=== PATIENT | female | born 1935 | race Caucasian/White ===

== ENCOUNTER 2017-11-07 14:25 | Inpatient (IN) ==
--- NOTE | 2017-11-07 15:16 | XRay Report ---
Indication: PAIN PROCEDURE: XR knee RT 3V: Encounter: Initial Comparison: March 11, 2014 Findings: There is a comminuted distracted fracture of the superior pole of the patella. This is distracted by approximately 3 cm proximally. This is a periprosthetic fracture involving the patellar resurfacing component of the total knee replacement. Associated joint effusion. The tibial and femoral components of the knee replacement appear intact. No additional acute fracture. No dislocation. Impression: Distracted patellar fracture. .
--- NOTE | 2017-11-07 15:25 | Emergency Department Report ---
Lower Extremity Injury HPI - General Chief Complaint: Extremity Injury, Lower Stated Complaint: pain r knee Time Seen by Provider: 11/07/17 15:25 - Related Data Home Medications Medication Instructions Recorded Confirmed Amitriptyline HCl 150 mg PO PM #0 03/19/10 Montelukast Sodium [Singulair] 10 mg PO PM #0 03/19/10 Pregabalin Cap [Lyrica] 50 mg PO TID #0 03/19/10 Triamcinolone Acetonide (Nasacort 1 spray EA NOSTRIL BID #0 03/19/10 Aq) Folic Acid 3 mg PO DAILY #0 10/01/10 Potassium Chloride [Klor-Con M20] 20 meq PO BID #0 10/01/10 Furosemide [Lasix] 80 mg PO BID #0 05/02/12 Gabapentin 100 mg PO TID #0 05/02/12 Levothyroxine Sodium 25 mcg PO DAILY #0 05/02/12 Zolpidem Tartrate [Ambien] 5 mg PO HS #0 09/22/13 Albuterol Sulfate [Proventil Hfa 2 puff IH Q4HR PRN #0 10/18/13 90mcg] Ferrous Sulfate 250 mg PO DAILY #0 10/18/13 Fluticasone/Salmeterol 250/50 1 puff INH BID #0 10/18/13 [Advair 250-50 Diskus] Cetirizine HCl [Zyrtec] 10 mg PO DAILY #0 02/27/14 Benazepril HCl 15 mg PO DAILY #0 03/07/14 Magnesium Hydroxide [Milk of 30 ml PO DAILY PRN #0 05/10/14 Magnesia] Morphine Sulfate (Avinza) 30 mg PO DAILY #0 05/10/14 Rabeprazole Sodium 20 mg PO DAILY #0 05/10/14 Sodium Chloride [Deep Sea] 2 spray EA NOSTRIL DAILY #0 05/10/14 Allopurinol 100 mg PO DAILY #0 01/22/16 Ascorbic Acid (Vitamin C) PO DAILY #0 01/22/16 Calcium Polycarbophil [Fiber Tabs] 625 mg PO DAILY #0 01/22/16 Cyanocobalamin (Vitamin B-12) 1 tab PO BID #0 01/22/16 [Vitamin B-12] Glucosamine/Chondroitin Sulf A 1 cap PO BID #0 01/22/16 [Glucosamine Chondroitin Cap] Hydrocodone/Acetaminophen 1 tab PO Q4HR PRN #0 01/22/16 [Hydrocodon-Acetaminophn 10-325] Lutein 20 mg PO PM #0 01/22/16 Multivitamin [Multi-Day Vitamins] 1 tab PO PM #0 01/22/16 [place]-3 Fatty Acids [Fish Oil] 1 cap PO PM #0 01/22/16 dilTIAZem HCl [Cartia Xt] 180 mg PO DAILY #0 01/22/16 Calcium Carbonate/Vitamin D3 PO DAILY #0 01/27/16 [Calcium 600-Vit D3 200 Tablet] Previous Rx's Medication Instructions Recorded predniSONE [Prednisone] 10 mg PO WB 2 Days #0 tab 01/28/16 Allergies Allergy/AdvReac Type Severity Reaction Status Date / Time adhesive tape Allergy Unknown RASH Verified 01/27/16 09:15 petrolatum,white Allergy Unknown Unverified 01/27/16 09:15 sulfamethoxazole Allergy Unknown Unverified 01/27/16 09:15 trimethoprim Allergy Unknown Unverified 01/27/16 09:15 Unclassified Drug Allergy Severe [place] Uncoded 01/27/16 09:15 = ITCH/THROAT SWELLS duloxetine HCl AdvReac Mild WEAKNESS Uncoded 01/27/16 09:15 [facility] Patient Stated Medical History Asthma Yes Anesthesia Reactions Yes: pneumonia after surgery - Social History Smoking status: Never smoker Course Vital Signs Temperature 98.4 F 11/07/17 14:30 Pulse Rate 88 11/07/17 14:30 Respiratory Rate 20 11/07/17 14:30 Blood Pressure 151/68 H 11/07/17 14:30 Pulse Oximetry 96 11/07/17 14:30 Temperature 98.4 F 11/07/17 14:30 Pulse Rate 97 11/07/17 15:19 Respiratory Rate 20 11/07/17 15:19 Blood Pressure 156/76 H 11/07/17 15:19 Pulse Oximetry 97 11/07/17 15:19 Disposition Prescriptions: No Action Amitriptyline HCl 150 mg PO PM #0 Pregabalin Cap [Lyrica] 50 mg PO TID #0 Folic Acid 3 mg PO DAILY #0 Potassium Chloride [Klor-Con M20] 20 meq PO BID #0 Gabapentin 100 mg PO TID #0 Levothyroxine Sodium 25 mcg PO DAILY #0 Ferrous Sulfate 250 mg PO DAILY #0 Cetirizine HCl [Zyrtec] 10 mg PO DAILY #0 Benazepril HCl 15 mg PO DAILY #0 Rabeprazole Sodium 20 mg PO DAILY #0 Magnesium Hydroxide [Milk of Magnesia] 30 ml PO DAILY PRN #0 PRN Reason: CONSTIPATION Glucosamine/Chondroitin Sulf A [Glucosamine Chondroitin Cap] 1 cap PO BID #0 Cyanocobalamin (Vitamin B-12) [Vitamin B-12] 1 tab PO BID #0 [place]-3 Fatty Acids [Fish Oil] 1 cap PO PM #0 Multivitamin [Multi-Day Vitamins] 1 tab PO PM #0 Calcium Polycarbophil [Fiber Tabs] 625 mg PO DAILY #0 dilTIAZem HCl [Cartia Xt] 180 mg PO DAILY #0 predniSONE [Prednisone] 10 mg PO WB 2 Days #0 tab Triamcinolone Acetonide (Nasacort Aq) 1 spray EA NOSTRIL BID #0 Montelukast Sodium [Singulair] 10 mg PO PM #0 Furosemide [Lasix] 80 mg PO BID #0 Zolpidem Tartrate [Ambien] 5 mg PO HS #0 Fluticasone/Salmeterol 250/50 [Advair 250-50 Diskus] 1 puff INH BID #0 Albuterol Sulfate [Proventil Hfa 90mcg] 2 puff IH Q4HR PRN #0 PRN Reason: PRN ORDERS Morphine Sulfate (Avinza) 30 mg PO DAILY #0 Sodium Chloride [Deep Sea] 2 spray EA NOSTRIL DAILY #0 Allopurinol 100 mg PO DAILY #0 Lutein 20 mg PO PM #0 Ascorbic Acid (Vitamin C) PO DAILY #0 Hydrocodone/Acetaminophen [Hydrocodon-Acetaminophn 10-325] 1 tab PO Q4HR PRN #0 PRN Reason: PAIN Calcium Carbonate/Vitamin D3 [Calcium 600-Vit D3 200 Tablet] PO DAILY #0 Referrals: Obi Bull MD [Family Provider] -
[2017-11-07] MEDS ORDERED: SALINE FLUSH 10ml SYRINGE IVF PRN (15:42)
--- NOTE | 2017-11-07 16:41 | XRay Report ---
Indication: preop PROCEDURE: XR chest 1V: Encounter: Initial Comparison: January 23, 2016 Findings: Chronic scarring in the left base. Elevated right hemidiaphragm. No focal pneumonia, pleural effusion or pneumothorax. Heart size and mediastinal contours are within normal limits. Pulmonary vascularity is normal. 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 Old rotator cuff tears with advanced degenerative changes in both shoulders. Severe scoliosis. Impression: No acute cardiopulmonary disease. .
--- NOTE | 2017-11-07 16:43 | Orthopedic Consult Note ---
Orthopedic Consultation HPI - Consultation Info Consult Date: 11/08/17 Attending Physician: Jasvir Bolden MD Consult Reason: fracture - History of Present Illness 82 yo female who had a right TKA by Dr Stone about 7 yrs ago. She fell 2 days ago while doing laundry but denies having knee pain after that fall. She first had knee pain last night in bed but it resolved with a change of position. She awoke today without knee pain and was able to walk to lunch at noon. She tried to get up from the table and felt a sharp pain and pop in her knee. She was able to catch herself and prevent a fall but had severe pain and was unable to ambulate. She was taken to [facility] ER where xrays showed a displaced fx of the superior pole of the right patella. She is admitted for surgical fixation of this injury. Review of Systems - Constitutional Constitutional: Absent: chills, fever(s), headache(s), dizziness - Cardiovascular Cardiovascular: Absent: chest pain, palpitations, syncope, dyspnea on exertion - Respiratory Respiratory: Present: cough (Chronically and uses albuterol. Denies a change in her baseline sympotoms.). Absent: dyspnea on exertion - Gastrointestinal Gastrointestinal: Absent: abdominal pain, change in bowel habits, diarrhea, dyspepsia, nausea, vomiting - Genitourinary Genitourinary General: Absent: chills - Musculoskeletal Musculoskeletal: Present: as per HPI, abnormal gait (Uses a walker. Wears special shoes for foot deformity.) - Integumentary/Breasts Integumentary: Absent: erythema, lesions, rash, wounds - Neurological Neurological: Present: abnormal gait, numbness (Feet ). Absent: paresthesias [facility] Medical History Updates: Asthma, bronchiectasis. HTN. Polymyalgia rheumatica. Hypothyroidism. GERD. Fibromyalgia. Chronic pain. Allergic rhinitis Surgical History: Right CTR and right ulnar nerve transposition 10/[address] Li. Bilat TKA by Dr Stone. NENA by Dr Cedeno. Hysterectomy. Colonoscopy. Foot surgery. Family History: Mother of old age at age 96 - she had arthritis and was bedfast but mind was sound. Father of a mucocele of the shenoid sinus at age 56. Two brothers in their 80s - one of a nosebleed secondary to alcoholism and the other of old age. 2 sisters still living; one with macular degeneration, one with depression. Oldest sister of dementia. Another of a massive hemorrhagic stroke after a bike accident at age 84. Another sister at age 46 of complications of a car accident. 2 sons are healthy. - Social History Smoking status: Never smoker Medications Home Medications Medication Instructions Recorded Confirmed Type Amitriptyline HCl 150 mg PO HS #0 03/19/10 11/07/17 History Montelukast Sodium [Singulair] 10 mg PO HS #0 03/19/10 11/07/17 History Pregabalin Cap [Lyrica] 50 mg PO TID #0 03/19/10 11/07/17 History Levothyroxine Sodium 25 mcg PO DAILY #0 05/02/12 11/07/17 History Albuterol Sulfate [Proventil Hfa 2 puff IH Q4HR PRN #0 10/18/13 11/07/17 History 90mcg] Fluticasone/Salmeterol 250/50 1 puff INH BID #0 10/18/13 11/07/17 History [Advair 250-50 Diskus] Cetirizine HCl [Zyrtec] 10 mg PO DAILY #0 02/27/14 11/07/17 History Benazepril HCl 10 mg PO DAILY #0 03/07/14 11/07/17 History Rabeprazole Sodium 20 mg PO DAILY #0 05/10/14 11/07/17 History Sodium Chloride [Deep Sea] 2 spray EA NOSTRIL DAILY #0 05/10/14 11/07/17 History Lutein 20 mg PO HS #0 01/22/16 11/07/17 History Albuterol/Ipratropium [Duoneb] 1 unit AEROSOL BID 11/07/17 11/07/17 History Allopurinol [Zyloprim] 200 mg PO DAILY 11/07/17 11/07/17 History Azithromycin [Azithromycin] 250 mg PO Q2D 11/07/17 11/07/17 History Calcium Polycarbophil [Fiber] 625 mg PO DAILY 11/07/17 11/07/17 History Cholecalciferol (Vitamin D3) 1,000 unit PO DAILY 11/07/17 11/07/17 History [Vitamin D3] Cyanocobalamin (Vitamin B-12) 1,000 mcg PO BID 11/07/17 11/07/17 History [Vitamin B-12] DiltiaZEM CD [Cardizem CD 120 MG] 120 mg PO DAILY 11/07/17 11/07/17 History Ferrous Sulfate 325 mg PO DAILY 11/07/17 11/07/17 History Folic Acid [Folate] 1 mg PO DAILY 11/07/17 11/07/17 History Furosemide [Lasix] 80 mg PO BID 11/07/17 11/07/17 History Gabapentin [Neurontin] 100 mg PO TID 11/07/17 11/07/17 History Glucosa [place] 2Kcl/Chondroitin [place] 1 tab PO BID 11/07/17 11/07/17 History [Glucosamine Chondroitin [place]] Hydrocodone/APAP 10/325 [[place] 1 - 2 tab PO Q4H PRN 11/07/17 11/07/17 History 10/325] Hydrocodone/APAP 10/325 [[place] 2 tab PO QID PRN 11/07/17 11/07/17 History 10/325] Hydrocortisone/Aloe Vera 1 applicatio TOP PRN PRN 11/07/17 11/07/17 History [Hydrocortisone Plus 1% Cream] Mag Hydrox/Aluminum Hyd/Simeth 30 ml PO Q4H PRN 11/07/17 11/07/17 History [Alum-Mag Hydroxide-Simeth Liq] Magnesium Hydroxide [Milk of 30 ml PO DAILY PRN 11/07/17 11/07/17 History Magnesia] Morphine Sulfate [Morphine Sulfate 30 mg PO DAILY 11/07/17 11/07/17 History ER] Multivitamin [One Daily 1 tab PO HS 11/07/17 11/07/17 History Multivitamin] [place]-3/Dha/Epa/Fish Oil [Fish Oil 500 mg PO HS 11/07/17 11/07/17 History 500 mg Softgel] Peg 3350 238 G Bottle [Miralax] 17 gm PO DAILY 11/07/17 11/07/17 History Peg 3350 238 G Bottle [Miralax] 17 gm PO DAILY PRN 11/07/17 11/07/17 History Potassium Chloride 20 meq PO BIDBS 11/07/17 11/07/17 History PredniSONE [Deltasone 2.5 mg] 2.5 mg PO DAILY 11/07/17 11/07/17 History Ramelteon [Rozerem] 8 mg PO HS 11/07/17 11/07/17 History Saline 0.65% Nasal [place] [Deep Sea 2 spray EA NOSTRIL PRN PRN 11/07/17 11/07/17 History Nasal Moisturizing [place]] Triamcinolone Acetonide [Nasacort] 1 spray EA NOSTRIL BIDBS 11/07/17 11/07/17 History Vitamin C 1 tab PO DAILY 11/07/17 11/07/17 History guaiFENesin [Mucinex] 600 mg PO Q12H 11/07/17 11/07/17 History Allergies Allergy/AdvReac Type Severity Reaction Status Date / Time adhesive tape Allergy Unknown RASH Verified 11/07/17 15:40 [place] Allergy Verified 11/07/17 15:41 celecoxib [From Celebrex] Allergy Verified 11/07/17 15:41 duloxetine Allergy Verified 11/07/17 15:41 petrolatum,white Allergy Verified 11/07/17 15:41 [From Petroleum Jelly] sulfamethoxazole Allergy Verified 11/07/17 15:41 trimethoprim Allergy Verified 11/07/17 15:41 Orthopedic Exam Vital signs: Temperature 98.4 F 11/07/17 14:30 Pulse Rate 71 11/07/17 16:33 Respiratory Rate 16 11/07/17 16:33 Blood Pressure 156/76 H 11/07/17 15:19 Pulse Oximetry 99 11/07/17 16:33 - Constitutional General Appearance: Present: alert, cooperative, no acute distress - Respiratory Exam Present: non-labored - Knee Exam right Knee Exam: Present: painful ROM, other (Tender over the patella. Bruising over the patella. Skin intact. Pt unable to SLR.) - Integumentary Exam Present: bruising - Neurological Exam Present: intact to light touch, no deficits - Psychiatric Exam Present: alert, oriented, normal affect - Labs Result Diagrams: 11/08/17 04:25 11/08/17 04:25 Impression and Recommendation (1) Right patella fracture Current visit: Yes Qualifiers: Encounter type: initial encounter Fracture type: closed Fracture morphology: transverse Fracture alignment: displaced Qualified Code(s): S82.031A - Displaced transverse fracture of right patella, initial encounter for closed fracture Status: Acute Recommend ORIF of the patella when medically cleared. Anesthesia to eval preop due to pulmonary concerns. Dr Cedeno has met with Maricruz to discuss the surgical procedure, risk vs benefits, possible complications and expected post operative course. NPO after midnight with expected surgery 11/08/17 in the afternoon. SCD for DVT coverage. Hospital Course Summary Disclaimer: The visit summary below is not to be considered part of the above Progress Note.
[2017-11-07] MEDS ORDERED: MORPHINE SULFATE 2mg INJECTION IVP PRN (16:45)
[2017-11-07] MEDS ORDERED: ONDANSETRON 4 MG/2 ML INJECTION IVP PRN (16:45)
[2017-11-07] MEDS ORDERED: HYDROCODONE/APAP 10 MG/325 MG TABLET PO PRN (16:45)
[2017-11-07] MEDS ORDERED: ACETAMINOPHEN 325 MG TABLET PO PRN ×2 (16:45→20:52)
[2017-11-07 17:09] VITALS: BMI 29.2
[2017-11-07] MEDS ORDERED: NOZIN NASAL SWAB NAS ONE (17:23)
--- NOTE | 2017-11-07 17:40 | History & Physical Report ---
History of Present Illness Date: 11/07/17 Chief complaint: knee pain HPI: Maricruz Anaya is an 82 y/o woman who fell 2 days earlier while doing laundry. At that time, she landed on her bottom, and she didn't have any pain. However, she developed sharp right knee pain last night when she moved in bed. This pain resolved, and by this morning she was able to ambulate at her baseline - with a walker. After lunch, she was maneuvering her legs to transfer herself from the chair to her scooter and felt a pain and pop in her knee. She denies falling but was unable to ambulate. She otherwise has been in relatively good health and denies any recent or abnormal illness/concerns. 911 was activated and she was transported to [facility], where she was diagnosed with a patellar fracture. Overall, CBC and CMP were unremarkable. Dr. Cedeno and Dr. Bolden were both notified and the patient was admitted to observation status. Surgery is anticipated for 11/08. Review of Systems All systems PM: 10-point ROS was reviewed, no additional remarkable complaints except - Constitutional Constitutional: Absent: chills, fever(s) - EENMT Eyes: Absent: change in vision Balance: Absent: vertigo Nose: Present: allergies Mouth/Throat: Absent: sore throat - Cardiovascular Cardiovascular: Absent: chest pain, palpitations Vascular: Present: pedal edema (chronic) - Respiratory Respiratory: Present: cough (chronic, worse in mornings and evenings) - Gastrointestinal Gastrointestinal: Present: constipation. Absent: abdominal pain, diarrhea, nausea, vomiting - Genitourinary Genitourinary: Absent: dysuria - Musculoskeletal Musculoskeletal: Present: muscle weakness, myalgias - Neurological Neurological: Present: abnormal gait, dizziness (occasional), weakness. Absent : confusion, frequent falls, headache(s), memory loss - Psychiatric Psychiatric: Absent: anxiety - Endocrine Endocrine: Absent: palpitations - Hematologic/Lymphatic Hematologic/Lymphatic: Absent: easy bleeding - Allergic/Immunologic Allergic/Immunologic: Present: seasonal rhinorrhea Past Medical History Asthma, bronchiectasis HTN Polymyalgia rheumatica Hypothyroidism GERD Fibromyalgia Chronic pain Allergic rhinitis Surgical History: Right CTR and right ulnar nerve transposition 10/[address] Li. Bilat TKA by Dr Stone. NENA by Dr Cedeno. Hysterectomy. Colonoscopy. Foot surgery. Family History Updates: Mother of old age at age 96 - she had arthritis and was bedfast but mind was sound. Father of a mucocele of the shenoid sinus at age 56. Two brothers in their 80s - one of a nosebleed secondary to alcoholism and the other of old age. 2 sisters still living; one with macular degeneration, one with depression. Oldest sister of dementia. Another of a massive hemorrhagic stroke after a bike accident at age 84. Another sister at age 46 of complications of a car accident. 2 sons are healthy. - Social History Smoking status: Never smoker Substance use type: does not use Alcohol intake frequency: does not drink Household members: spouse Social history: PCP: Dr. Ml Mcdaniels mgt: MD at [facility], [facility] in [place] Medications [place] Medications Medication Instructions Recorded Confirmed Type Amitriptyline HCl 150 mg PO HS #0 03/19/10 11/07/17 History Montelukast Sodium [Singulair] 10 mg PO HS #0 03/19/10 11/07/17 History Pregabalin Cap [Lyrica] 50 mg PO TID #0 03/19/10 11/07/17 History Levothyroxine Sodium 25 mcg PO DAILY #0 05/02/12 11/07/17 History Albuterol Sulfate [Proventil Hfa 2 puff IH Q4HR PRN #0 10/18/13 11/07/17 History 90mcg] Fluticasone/Salmeterol 250/50 1 puff INH BID #0 10/18/13 11/07/17 History [Advair 250-50 Diskus] Cetirizine HCl [Zyrtec] 10 mg PO DAILY #0 02/27/14 11/07/17 History Benazepril HCl 10 mg PO DAILY #0 03/07/14 11/07/17 History Rabeprazole Sodium 20 mg PO DAILY #0 05/10/14 11/07/17 History Sodium Chloride [Deep Sea] 2 spray EA NOSTRIL DAILY #0 05/10/14 11/07/17 History Lutein 20 mg PO HS #0 01/22/16 11/07/17 History Albuterol/Ipratropium [Duoneb] 1 unit AEROSOL BID 11/07/17 11/07/17 History Allopurinol [Zyloprim] 200 mg PO DAILY 11/07/17 11/07/17 History Azithromycin [Azithromycin] 250 mg PO Q2D 11/07/17 11/07/17 History Calcium Polycarbophil [Fiber] 625 mg PO DAILY 11/07/17 11/07/17 History Cholecalciferol (Vitamin D3) 1,000 unit PO DAILY 11/07/17 11/07/17 History [Vitamin D3] Cyanocobalamin (Vitamin B-12) 1,000 mcg PO BID 11/07/17 11/07/17 History [Vitamin B-12] DiltiaZEM CD [Cardizem CD 120 MG] 120 mg PO DAILY 11/07/17 11/07/17 History Ferrous Sulfate 325 mg PO DAILY 11/07/17 11/07/17 History Folic Acid [Folate] 1 mg PO DAILY 11/07/17 11/07/17 History Furosemide [Lasix] 80 mg PO BID 11/07/17 11/07/17 History Gabapentin [Neurontin] 100 mg PO TID 11/07/17 11/07/17 History Glucosa [place] 2Kcl/Chondroitin [place] 1 tab PO BID 11/07/17 11/07/17 History [Glucosamine Chondroitin [place]] Hydrocodone/APAP 10/325 [[place] 1 - 2 tab PO Q4H PRN 11/07/17 11/07/17 History 10/325] Hydrocodone/APAP 10/325 [[place] 2 tab PO QID PRN 11/07/17 11/07/17 History 10/325] Hydrocortisone/Aloe Vera 1 applicatio TOP PRN PRN 11/07/17 11/07/17 History [Hydrocortisone Plus 1% Cream] Mag Hydrox/Aluminum Hyd/Simeth 30 ml PO Q4H PRN 11/07/17 11/07/17 History [Alum-Mag Hydroxide-Simeth Liq] Magnesium Hydroxide [Milk of 30 ml PO DAILY PRN 11/07/17 11/07/17 History Magnesia] Morphine Sulfate [Morphine Sulfate 30 mg PO DAILY 11/07/17 11/07/17 History ER] Multivitamin [One Daily 1 tab PO HS 11/07/17 11/07/17 History Multivitamin] [place]-3/Dha/Epa/Fish Oil [Fish Oil 500 mg PO HS 11/07/17 11/07/17 History 500 mg Softgel] Peg 3350 238 G Bottle [Miralax] 17 gm PO DAILY 11/07/17 11/07/17 History Peg 3350 238 G Bottle [Miralax] 17 gm PO DAILY PRN 11/07/17 11/07/17 History Potassium Chloride 20 meq PO BIDBS 11/07/17 11/07/17 History PredniSONE [Deltasone 2.5 mg] 2.5 mg PO DAILY 11/07/17 11/07/17 History Ramelteon [Rozerem] 8 mg PO HS 11/07/17 11/07/17 History Saline 0.65% Nasal Luna [Deep Sea 2 spray EA NOSTRIL PRN PRN 11/07/17 11/07/17 History Nasal Moisturizing Luna] Triamcinolone Acetonide [Nasacort] 1 spray EA NOSTRIL BIDBS 11/07/17 11/07/17 History Vitamin C 1 tab PO DAILY 11/07/17 11/07/17 History guaiFENesin [Mucinex] 600 mg PO Q12H 11/07/17 11/07/17 History Allergies Allergy/AdvReac Type Severity Reaction Status Date / Time adhesive tape Allergy Unknown RASH Verified 11/07/17 15:40 Cantaloupe Allergy Verified 11/07/17 15:41 celecoxib [From Celebrex] Allergy Verified 11/07/17 15:41 duloxetine Allergy Verified 11/07/17 15:41 petrolatum,white Allergy Verified 11/07/17 15:41 [From Petroleum Jelly] sulfamethoxazole Allergy Verified 11/07/17 15:41 trimethoprim Allergy Verified 11/07/17 15:41 Exam Vital Signs: Temperature 98.2 F 11/07/17 16:45 Pulse Rate 92 11/07/17 16:45 Respiratory Rate 18 11/07/17 16:45 Blood Pressure 155/68 H 11/07/17 16:45 Pulse Oximetry 95 11/07/17 16:45 Height/Weight/BMI: Height 1.7 m Weight 84.9 kg Body Mass Index 29.2 - Constitutional Present: no acute distress, well nourished, well developed - Routine HEENT Exam Head: Present: normocephalic Eye: Present: PERRL. Absent: conjunctival icterus, scleral injection ENT: Present: mucous membranes moist, oropharynx clear - Routine Neck Exam Present: supple - Routine Respiratory Exam Present: CTA bilaterally - Routine Cardiovascular Exam Present: RRR, S1, S2 - Routine Abdominal Exam Present: soft, normoactive bowel sounds, non distended, non tender - Routine Extremities Exam Present: edema (nonpitting edema b/l) Comments: knee immob. on right arthritic deformities to both hands, predominantly left with pronounced ulnar deviation of MCPs and flexion contractures of DIP/MIP joints - Routine Skin Exam Present: intact, dry, warm - Routine Neurological Exam Present: alert, oriented X3, CN II-XII intact, normal speech - Routine Psychiatric Exam Present: normal affect, normal thought process, cooperative Results - Labs CBC & Chem 7: 11/07/17 15:47 11/07/17 15:47 - Imaging and Cardiology Chest x-ray Status: image reviewed by me (no acute findings; right hemidiaphragm) Right knee Status: image reviewed by me (displaced patellar fracture; TKA) Assessment and Plan (1) Right patella fracture Current visit: Yes Status: Acute Assessment and Plan: IMPRESSION Right patellar fracture Asthma, bronchiectasis HTN Polymyalgia rheumatica Hypothyroidism GERD Fibromyalgia Chronic pain PLAN Admit, obs status, under the hospitalist service. Dr. Cedeno consulted. Labs stable; EKG pending - if stable she will be cleared medically for sx. Anticipate pain control will be difficult - may need to discuss with pain mgt provider at [facility] [place] (pt can't recall name). Continue routine meds; monitor resp status with hx of bronchiectasis. PT/OT postop; bowel regimen ordered. Code status: Full code. 2 sons are DPOA. GI Prophylaxis: other Resuscitation Status: Full Code - Physician Narrative Physician: Jasvir Bolden MD Narrative: Date: 11/07/17 Time: 1999 Have independently interviewed and examined pt. Chart reviewed. Case discussed with ED physician and my CONTROL ROOM AGENT. Care plan developed with my supervision; agree with above. Presents to ED secondary to severe pain in knee onset acutely after she hear and felt a popping in her right knee. No significant trauma to knee. Did fall 2 days ago (landed on 'bottom') - reports bending to do laundry and did not fall far. Able to get up and walk afterwards. Did notice pain to her right knee last night with movements while in bed. Does have chronic pain-not reporting any other areas hurting out of the ordinary. Breathing stable-chronic respiratory issues but no acute decline. Evaluated in ED. Patella fx noted. Placed in OBS for orthopedic evaluation and treatment. Lungs: decreased, no distress CV: regular AB: soft nt MSE: awake alert appropriate Plan: OBS. Ortho consult. Control pain. Continue home medications. SCD for DVT prevention. IS to help pulm toilet. CM to help on discharge disposition. Hospital Course Summary Disclaimer: The visit summary below is not to be considered part of the above Progress Note. Hospital Course: 11/07 Admit, obs status, under the hospitalist service. Dr. Cedeno consulted. Labs stable; EKG pending - if stable she will be cleared medically for sx. Anticipate pain control will be difficult - may need to discuss with pain mgt provider at [facility] [place] (pt can't recall name). Continue routine meds; monitor resp status with hx of bronchiectasis. PT/OT postop; bowel regimen ordered. Code status: Full code. 2 sons are DPOA.
[2017-11-07] MEDS ORDERED: AZITHROMYCIN 250 MG SENT HOME SCH (17:45)
[2017-11-07] MEDS ORDERED: ALBUTEROL 2.5mg/3ml (0.083%) NEB AEROSOL PRN (17:45)
[2017-11-07] MEDS ORDERED: MAGNESIUM HYDROXIDE PO PRN (17:45)
[2017-11-07] MEDS: HYDROCODONE/APAP 10 MG/325 MG TABLET PO PRN (18:47)
[2017-11-07] MEDS: GUAIFENESIN LA 600 MG TABLET PO SCH (18:47)
[2017-11-07] MEDS: GLUCOSAMINE/CHONDROITIN 500 MG/400 MG CAPSULE PO SCH (20:11)
[2017-11-07] MEDS: AMITRIPTYLINE 50 MG TABLET PO SCH (20:11)
[2017-11-07] MEDS: MONTELUKAST 10 MG TABLET PO SCH (20:12)
[2017-11-07] MEDS: GABAPENTIN 100 MG CAPSULE PO SCH (20:12)
[2017-11-07] MEDS: PREGABALIN 50 MG CAPSULE PO SCH (20:12)
[2017-11-07] MEDS: ALBUTEROL/IPRATROPIUM 2.5mg-0.5mg/3ml NEB AEROSOL SCH (20:23)
[2017-11-07] MEDS ORDERED: AMITRIPTYLINE HCL 150 MG PO SCH (21:00)
[2017-11-07] MEDS ORDERED: NON-FORMULARY MEDICATION 1 EACH EACH (Multivitamin [One Daily Multivitamin] 1 TAB) PO SCH (21:00)
[2017-11-07] MEDS ORDERED: NON-FORMULARY MEDICATION 1 EACH EACH (Cyanocobalamin (Vitamin B-12) [Vitamin B-12] 1,000 M PO SCH (21:00)
[2017-11-07] MEDS ORDERED: NON-FORMULARY MEDICATION 1 EACH EACH (Lutein [Lutein] 20 MG) PO SCH (21:00)
[2017-11-07] MEDS ORDERED: [UNRECOGNIZED DRUG - OTHER] PO SCH (21:00)
[2017-11-08] MEDS: HYDROCODONE/APAP 10 MG/325 MG TABLET PO PRN ×2 (00:16→08:19)
[2017-11-08] MEDS: LEVOTHYROXINE 25 MCG TABLET PO SCH (05:55)
[2017-11-08] MEDS: AZITHROMYCIN 250 MG TABLET PO SCH (05:55)
[2017-11-08] MEDS: GUAIFENESIN LA 600 MG TABLET PO SCH ×2 (05:55→17:41)
[2017-11-08] MEDS: Ramelteon [Rozerem] 8 MG PO SCH ×2 (06:31→21:22)
[2017-11-08] MEDS: FERROUS SULFATE 324 MG TABLET PO SCH (07:54)
[2017-11-08] MEDS ORDERED: TRIAMCINOLONE ACETONIDE EA NOSTRIL SCH (08:00)
[2017-11-08] MEDS: FUROSEMIDE 80 MG TABLET PO SCH ×2 (08:18→15:10)
[2017-11-08] MEDS: RABEPRAZOLE 20 MG PO SCH (08:19)
[2017-11-08] MEDS: ALLOPURINOL 100 MG TABLET PO SCH (08:19)
[2017-11-08] MEDS: PREGABALIN 50 MG CAPSULE PO SCH ×3 (08:20→21:19)
[2017-11-08] MEDS: BENAZEPRIL 10 MG TABLET PO SCH (08:20)
[2017-11-08] MEDS: GABAPENTIN 100 MG CAPSULE PO SCH ×3 (08:20→21:18)
[2017-11-08] MEDS: CYANOCOBALAMIN (B-12) 500mcg TABLET PO SCH (08:23)
[2017-11-08] MEDS: GLUCOSAMINE/CHONDROITIN 500 MG/400 MG CAPSULE PO SCH ×2 (08:23→21:18)
[2017-11-08] MEDS: CETIRIZINE 10 MG TABLET PO SCH (08:23)
[2017-11-08] MEDS: FOLIC ACID 1 MG TABLET PO SCH (08:23)
[2017-11-08] MEDS: FLUTICASONE NASAL SPRAY 50mcg EA NOSTRIL SCH (08:23)
[2017-11-08] MEDS: CALCIUM POLYCARBOPHIL 625 MG TABLET PO SCH (08:23)
[2017-11-08] MEDS: MULTI-VITAMIN + MINERAL TABLET PO SCH (08:23)
[2017-11-08] MEDS: LUTEIN 20 MG CAPSULE PO SCH (08:23)
[2017-11-08] MEDS: ASCORBIC ACID 500 MG TABLET PO SCH (08:23)
[2017-11-08] MEDS: SALINE 0.65% NASAL SPRAY 44 ML BOTTLE EA NOSTRIL SCH (08:24)
[2017-11-08] MEDS: POLYETHYL GLYCOL 3350 17gm PACKET PO SCH (08:24)
[2017-11-08] MEDS ORDERED: NON-FORMULARY MEDICATION 1 EACH EACH (Cetirizine Hcl [Zyrtec] 10 MG) PO SCH (09:00)
[2017-11-08] MEDS ORDERED: BENAZEPRIL HCL 10 MG PO SCH (09:00)
[2017-11-08] MEDS ORDERED: NON-FORMULARY MEDICATION 1 EACH EACH (Ferrous Sulfate [Ferrous Sulfate] 325 MG) PO SCH (09:00)
[2017-11-08] MEDS ORDERED: NON-FORMULARY MEDICATION 1 EACH EACH (Cholecalciferol (Vitamin D3) [Vitamin D3] 1,000 UNIT PO SCH (09:00)
[2017-11-08] MEDS ORDERED: VITAMIN C PO SCH (09:00)
[2017-11-08] MEDS ORDERED: MORPHINE SULFATE 30 MG PO SCH (09:00)
[2017-11-08] MEDS ORDERED: PredniSONE 2.5 MG TABLET PO SCH (09:00)
--- NOTE | 2017-11-08 09:12 | Progress Note ---
- Date 11/08/17 Subjective: Maricruz states that her pain is as good as can be expected. She's particular on the timing of her pain pills. She is allowed to have clear liquids this morning and then will be NPO for surgery sometime after 3 pm. She denies SOA or chest pain. She denies abdominal pain or nausea. Objective Vital signs: Temperature 97.9 F 11/08/17 07:39 Pulse Rate 99 11/08/17 07:39 Respiratory Rate 16 11/08/17 07:39 Blood Pressure 148/65 H 11/08/17 07:39 Pulse Oximetry 92 11/08/17 07:39 Height/Weight/BMI: Height 1.7 m Weight 83.5 kg Body Mass Index 29.2 - Constitutional Present: no acute distress, well nourished, well developed - Routine HEENT Exam Head: Present: normocephalic Eye: Present: PERRL. Absent: conjunctival icterus, scleral injection ENT: Present: oropharynx clear - Routine Respiratory Exam Present: CTA bilaterally - Routine Cardiovascular Exam Present: RRR, S1, S2 - Routine Abdominal Exam Present: soft, normoactive bowel sounds, non distended, non tender - Routine Extremities Exam Present: no edema, pulses intact Comments: knee immob on right jose on right wrist - Routine Musculoskeletal Exam Musculoskeletal: Present: limited range of motion (right patellar fx) - Routine Skin Exam Present: intact, dry, warm, ecchymosis (forearms) - Routine Neurological Exam Present: alert, oriented X3, normal speech - Routine Psychiatric Exam Present: normal affect, normal thought process, cooperative Results - Labs CBC & Chem 7: 11/08/17 04:25 11/08/17 04:25 Assessment and Plan (1) Right patella fracture Current visit: Yes Status: Acute Assessment and Plan: IMPRESSION Right patellar fracture Hypokalemia, not POA Normocytic anemia Asthma, bronchiectasis HTN Polymyalgia rheumatica Hypothyroidism GERD Fibromyalgia Chronic pain PLAN Mild hypokalemia - extra KDur ordered. Sx today after 3 pm. Monitor resp status w/ hx of bronchiectasis/asthma. I called Dr. Mohamud's office (her pain mgt MD) - he is ok with increasing pain needs acutely and for a short period postop. He requests to know what we send her out on at time of discharge. Mild normocytic anemia - monitor. Vit D pending. Kimi Did well with surgery. Nerve block starting to wear off. Postoperatively changed QID [place] to routine at pt request to help stay on top of pain. Monitor for sedation. DVT Prophylaxis: SCD's (left leg) GI Prophylaxis: other Resuscitation Status: Full Code - Time spent with patient Time with patient PN: 25 minutes - Physician Narrative Physician: Jasvir Bolden MD Narrative: Date: 11/08/17 Time: 1909 Have independently interviewed and examined pt. Chart reviewed. Case discussed with CM and my MACHINE COIL ASSEMBLER. Care plan developed with my supervision; agree with above. Doing well post op this evening. Nerve block wearing off-starting to have pain. No nausea or ab pain. Breathing well. Lungs: decreased, no distress CV: regular AB: soft nt MSE: awake alert appropriate, thoughts linear Plan: Changed to inpatient admission status due to need for knee surgery. PT/OT consulted to help improve functional status. Control pain-pt requesting routine medications to help stay on top of her discomfort-will schedule her QID [place] routinely. Monitor for oversedation. Encourage respiratory toilet. CM looking into discharge options. Hospital Course Summary Disclaimer: The visit summary below is not to be considered part of the above Progress Note. Hospital Course: 11/07 Admit, obs status, under the hospitalist service. Dr. Cedeno consulted. Labs stable; EKG pending - if stable she will be cleared medically for sx. Anticipate pain control will be difficult - may need to discuss with pain mgt provider at [facility] [place] (pt can't recall name). Continue routine meds; monitor resp status with hx of bronchiectasis. PT/OT postop; bowel regimen ordered. Code status: Full code. 2 sons are DPOA. 11/08 OP DAY Will change to inpatient admission status due to need for surgery. Mild hypokalemia - extra KDur ordered. Sx today after 3 pm. Monitor resp status w/ hx of bronchiectasis/asthma. I called Dr. Mohamud's office (her pain mgt MD) - he is ok with increasing pain needs acutely and for a short period postop. He requests to know what we send her out on at time of discharge. Postoperatively changed QID [place] to routine at pt request to help stay on top of pain. Mild normocytic anemia - monitor. Vit D pending.
[2017-11-08] MEDS: ALBUTEROL/IPRATROPIUM 2.5mg-0.5mg/3ml NEB AEROSOL SCH ×2 (10:11→20:04)
[2017-11-08] MEDS ORDERED: PROPOFOL 20 ML ONE (13:44)
--- NOTE | 2017-11-08 13:57 | Anesthesia Preoperative Report ---
Anesthesia Preoperative Record - Date and Time Date: 11/08/17 Preoperative Diagnosis: patella fracture Proposed Procedure: ORIF right Patella NPO Since Date: 11/08/17 NPO Since Time: 00:00 Allergies/Adverse Reactions: Allergies Allergy/AdvReac Type Severity Reaction Status Date / Time adhesive tape Allergy Unknown RASH Verified 11/07/17 15:40 Cantaloupe Allergy Verified 11/07/17 15:41 celecoxib [From Celebrex] Allergy Verified 11/07/17 15:41 duloxetine Allergy Verified 11/07/17 15:41 petrolatum,white Allergy Verified 11/07/17 15:41 [From Petroleum Jelly] sulfamethoxazole Allergy Verified 11/07/17 15:41 trimethoprim Allergy Verified 11/07/17 15:41 - Vital Signs Vital Signs: Temperature 97.9 F 11/08/17 07:39 Pulse Rate 99 11/08/17 07:39 Respiratory Rate 18 11/08/17 10:16 Blood Pressure 148/65 H 11/08/17 07:39 Pulse Oximetry 96 11/08/17 10:12 Height and Weight: Height 1.7 m Weight 83.5 kg Body Mass Index 29.2 - Medications Inpatient Medications: Current Medications Acetaminophen (Tylenol) 650 mg PO Q5H PRN PRN Reason: Discomfort Hydrocodone Bitart/Acetaminophen ([place] 10/325) 2 tab PO QID PRN PRN Reason: Pain Last Admin: 11/08/17 08:19 Dose: 2 tab Hydrocodone Bitart/Acetaminophen ([place] 10/325) 1 - 2 tab PO Q4H PRN PRN Reason: Pain Last Admin: 11/08/17 00:16 Dose: 2 tab Albuterol Sulfate (Proventil Neb (0.083%)) 2.5 mg AEROSOL Q4H PRN Albuterol/Ipratropium (Duoneb) 3 ml AEROSOL RTBID [facility] Allopurinol (Zyloprim) 200 mg PO DAILY [facility] Last Admin: 11/08/17 08:19 Dose: 200 mg Amitriptyline HCl (Elavil) 150 mg PO HS [facility] Last Admin: 11/07/17 20:11 Dose: 150 mg Ascorbic Acid (Vitamin C) 500 mg PO DAILY [facility] Last Admin: 11/08/17 08:23 Dose: Not Given Azithromycin (Zithromax Eq.) 250 mg PO Q2D@0630 [facility] Last Admin: 11/08/17 05:55 Dose: Not Given Benazepril HCl (Lotensin) 10 mg PO DAILY [facility] Last Admin: 11/08/17 08:20 Dose: 10 mg Calcium Polycarbophil (Fiber-Lax) 625 mg PO DAILY [facility] Last Admin: 11/08/17 08:23 Dose: Not Given Cetirizine HCl (Zyrtec) 10 mg PO DAILY [facility] Last Admin: 11/08/17 08:23 Dose: Not Given Cholecalciferol (Vit. D-3) 1,000 unit PO DAILY [facility] Last Admin: 11/08/17 08:23 Dose: Not Given Cyanocobalamin (Vit. B-12) 1,000 mcg PO DAILY [facility] Last Admin: 11/08/17 08:23 Dose: Not Given Diltiazem HCl (Cardizem Cd 120 Mg) 120 mg PO DAILY [facility] Last Admin: 11/08/17 08:21 Dose: 120 mg Ferrous Sulfate (Feosol) 324 mg PO WB [facility] Last Admin: 11/08/17 07:54 Dose: Not Given Fluticasone Propionate (Flonase) 2 spray EA NOSTRIL DAILY [facility] Last Admin: 11/08/17 08:23 Dose: Not Given Folic Acid (Folate) 1 mg PO DAILY [facility] Last Admin: 11/08/17 08:23 Dose: Not Given Furosemide (Lasix) 80 mg PO [id number] [facility] Last Admin: 11/08/17 08:18 Dose: 80 mg Gabapentin (Neurontin) 100 mg PO TID [facility] Last Admin: 11/08/17 08:20 Dose: 100 mg Glucosamine/Chondroitin (Osteo Bi-Flex) 1 cap PO BID [facility] Last Admin: 11/08/17 08:23 Dose: Not Given Guaifenesin (Mucinex La) 600 mg PO Q12H [facility] Last Admin: 11/08/17 05:55 Dose: Not Given Lactated Ringer's (Lactated Ringers) 1,000 mls @ 50 mls/hr IV .Q20H [facility] Levothyroxine Sodium (Synthroid) 25 mcg PO ACB [facility] Last Admin: 11/08/17 05:55 Dose: Not Given Lutein () 20 mg PO DAILY [facility] Last Admin: 11/08/17 08:23 Dose: Not Given Magnesium Hydroxide (Mom) 30 ml PO DAILY PRN PRN Reason: Constipation Montelukast Sodium (Singulair) 10 mg PO HS [facility] Last Admin: 11/07/17 20:12 Dose: 10 mg Morphine Sulfate (Morphine Sulfate Inj) 2 mg IVP Q2HR PRN PRN Reason: Pain Morphine Sulfate (Ms Contin) 30 mg PO DAILY [facility] Last Admin: 11/08/17 08:20 Dose: 30 mg Multivitamins/Minerals (Therapeutic - M) 1 tab PO DAILY [facility] Last Admin: 11/08/17 08:23 Dose: Not Given Non-Formulary Medication (Ramelteon [Rozerem]) 8 mg PO HS [facility] Last Admin: 11/08/17 06:31 Dose: Not Given Ondansetron HCl (Zofran) 4 mg IVP Q6H PRN PRN Reason: Nausea Polyethylene Glycol (Miralax) 17 gm PO DAILY [facility] Last Admin: 11/08/17 08:24 Dose: Not Given Potassium Chloride (K-Dur 20 Meq Tablet) 20 meq PO BIDBS [facility] Last Admin: 11/08/17 08:18 Dose: 20 meq Prednisone (Deltasone 2.5 Mg) 2.5 mg PO WB [facility] Pregabalin (Lyrica) 50 mg PO TID [facility] Last Admin: 11/08/17 08:20 Dose: 50 mg Rabeprazole Sodium (Aciphex) 20 mg PO DAILY [facility] Last Admin: 11/08/17 08:19 Dose: 20 mg Fluticasone/Salmeterol (Advair Diskus) 1 puff ORAL INH BID [facility] Last Admin: 11/07/17 20:54 Dose: 1 puff Sodium Chloride (Iv Flush) 10 - 80 ml IVF PRN PRN PRN Reason: Flushing Sodium Chloride (Deep Sea Nasal Moisturizing [place]) 2 spray EA NOSTRIL DAILY [facility] Last Admin: 11/08/17 08:24 Dose: Not Given Home Medications: Home Medications Medication Instructions Recorded Confirmed Type Amitriptyline HCl 150 mg PO HS #0 03/19/10 11/07/17 History Montelukast Sodium [Singulair] 10 mg PO HS #0 03/19/10 11/07/17 History Pregabalin Cap [Lyrica] 50 mg PO TID #0 03/19/10 11/07/17 History Levothyroxine Sodium 25 mcg PO DAILY #0 05/02/12 11/07/17 History Albuterol Sulfate [Proventil Hfa 2 puff IH Q4HR PRN #0 10/18/13 11/07/17 History 90mcg] Fluticasone/Salmeterol 250/50 1 puff INH BID #0 10/18/13 11/07/17 History [Advair 250-50 Diskus] Cetirizine HCl [Zyrtec] 10 mg PO DAILY #0 02/27/14 11/07/17 History Benazepril HCl 10 mg PO DAILY #0 03/07/14 11/07/17 History Rabeprazole Sodium 20 mg PO DAILY #0 05/10/14 11/07/17 History Sodium Chloride [Deep Sea] 2 spray EA NOSTRIL DAILY #0 05/10/14 11/07/17 History Lutein 20 mg PO HS #0 01/22/16 11/07/17 History Albuterol/Ipratropium [Duoneb] 1 unit AEROSOL BID 11/07/17 11/07/17 History Allopurinol [Zyloprim] 200 mg PO DAILY 11/07/17 11/07/17 History Azithromycin [Azithromycin] 250 mg PO Q2D 11/07/17 11/07/17 History Calcium Polycarbophil [Fiber] 625 mg PO DAILY 11/07/17 11/07/17 History Cholecalciferol (Vitamin D3) 1,000 unit PO DAILY 11/07/17 11/07/17 History [Vitamin D3] Cyanocobalamin (Vitamin B-12) 1,000 mcg PO BID 11/07/17 11/07/17 History [Vitamin B-12] DiltiaZEM CD [Cardizem CD 120 MG] 120 mg PO DAILY 11/07/17 11/07/17 History Ferrous Sulfate 325 mg PO DAILY 11/07/17 11/07/17 History Folic Acid [Folate] 1 mg PO DAILY 11/07/17 11/07/17 History Furosemide [Lasix] 80 mg PO BID 11/07/17 11/07/17 History Gabapentin [Neurontin] 100 mg PO TID 11/07/17 11/07/17 History Glucosa [place] 2Kcl/Chondroitin [place] 1 tab PO BID 11/07/17 11/07/17 History [Glucosamine Chondroitin [place]] Hydrocodone/APAP 10/325 [[place] 1 - 2 tab PO Q4H PRN 11/07/17 11/07/17 History 10/325] Hydrocodone/APAP 10/325 [[place] 2 tab PO QID PRN 11/07/17 11/07/17 History 10/325] Hydrocortisone/Aloe Vera 1 applicatio TOP PRN PRN 11/07/17 11/07/17 History [Hydrocortisone Plus 1% Cream] Mag Hydrox/Aluminum Hyd/Simeth 30 ml PO Q4H PRN 11/07/17 11/07/17 History [Alum-Mag Hydroxide-Simeth Liq] Magnesium Hydroxide [Milk of 30 ml PO DAILY PRN 11/07/17 11/07/17 History Magnesia] Morphine Sulfate [Morphine Sulfate 30 mg PO DAILY 11/07/17 11/07/17 History ER] Multivitamin [One Daily 1 tab PO HS 11/07/17 11/07/17 History Multivitamin] [place]-3/Dha/Epa/Fish Oil [Fish Oil 500 mg PO HS 11/07/17 11/07/17 History 500 mg Softgel] Peg 3350 238 G Bottle [Miralax] 17 gm PO DAILY 11/07/17 11/07/17 History Peg 3350 238 G Bottle [Miralax] 17 gm PO DAILY PRN 11/07/17 11/07/17 History Potassium Chloride 20 meq PO BIDBS 11/07/17 11/07/17 History PredniSONE [Deltasone 2.5 mg] 2.5 mg PO DAILY 11/07/17 11/07/17 History Ramelteon [Rozerem] 8 mg PO HS 11/07/17 11/07/17 History Saline 0.65% Nasal [place] [Deep Sea 2 spray EA NOSTRIL PRN PRN 11/07/17 11/07/17 History Nasal Moisturizing [place]] Triamcinolone Acetonide [Nasacort] 1 spray EA NOSTRIL BIDBS 11/07/17 11/07/17 History Vitamin C 1 tab PO DAILY 11/07/17 11/07/17 History guaiFENesin [Mucinex] 600 mg PO Q12H 11/07/17 11/07/17 History Is Patient on Beta Angela?: No - Medical History Respiratory: Reports: Asthma, Other (BRONCHIECTASIS) Other History: Reports: Anesthesia Reactions (pneumonia after surgery) - Surgical History HEENT Surgeries: Reports: Nose Surgery (deviated septum repair) Respiratory Surgery/Treatments: Reports: Oxygen Administration (1.5 L at night) GI Surgery/Treatments: Reports: Appendectomy Musculoskeletal Surgery/Tx: Reports: Carpal Tunnel Release, Total Hip Replacement (right hip), Total Knee Replacement (Bilat) Reproductive Surgery/Treatment: Reports: Hysterectomy Anesthesia Reactions: None Hx Family Anesthesia Reaction: No History of Motion Sickness: No - Social History Smoking Status: Never smoker Hx Chewing Tobacco Use: No Second Hand Exposure: No Substance Use Type: does not use Alcohol Intake Frequency: does not drink - Pertinent Findings Laboratory: CBC and BMP 11/08/17 04:25 11/08/17 04:25 BMP 11/08/17 04:25 Sodium 139 Potassium 3.5 L D Chloride 99 Carbon Dioxide 33 H BUN 15.0 Creatinine 0.7 Glucose 109 Calcium 8.3 L D Urine 11/07/17 Range/Units 17:50 Urine Color Yellow (YELLOW) Urine Clarity Clear Urine pH 7.5 (5.0-8.0) Ur Specific [place] 1.010 L (1.015-1.025) Urine Protein Negative (NEGATIVE) Urine Glucose (UA) Negative (NEGATIVE) EKG: Sinus Rhythm - Physical Exam Respiratory Exam: Present: lungs clear Cardiovascular Exam: Present: regular rate and rhythm - Airway Assessment Mallampati Score: II TMD: 3 Fingerbreadths Neck Extension: fair Overall Assessment: no airway concerns - ASA ASA Score: 3 - Plan Anesthesia: General Inhalation Gases - Discussion Discussion: Discussed risks/options/alternatives of anesthesia and questions answered. Patient consents. Nursing pain assessment noted. Attestation Statement: Prior to the delivery of any anesthetic medication, I examined the patient, developed the plan, obtained the patient's consent and discussed the risk and benefits of the procedure with the patient/guardian. - Additional Information Seen by Anesthesia: Yes
[2017-11-08] MEDS ORDERED: CEFAZOLIN 1 G INJECTION IVP ONE (14:31)
[2017-11-08] MEDS ORDERED: LIDOCAINE 1% (10mg/ml) 30ml SDV INJ ONE (14:36)
[2017-11-08] MEDS ORDERED: BUPIVACAINE 0.25% (2.5mg/ml) PF 30ml INJECTION ONE (14:36)
[2017-11-08] MEDS: LR 1,000 ML IV SCH ×3 (14:38→16:48)
[2017-11-08] MEDS ORDERED: MIDAZOLAM 2mg/2ml INJECTION ONE (14:44)
[2017-11-08] MEDS ORDERED: PHENYLEPHRINE INJ 10 MG/ML VIAL IV ONE (15:43)
[2017-11-08] MEDS ORDERED: PROPOFOL 500 MG/50 ML VIAL ONE (16:11)
--- NOTE | 2017-11-08 17:06 | Remote Fluorsocopy Report ---
Indication: ORIF RIGHT PATELLA PROCEDURE: RF knee RT 2 view: Encounter: Initial Comparison: Radiographs dated November 07, 2017 Findings: Four fluoroscopic spot images are submitted for interpretation. Images show open reduction and internal fixation of the periprosthetic patellar fracture with placement of two flexible fixation wires along with a cerclage wire. Improved alignment of the fracture fragments. Impression: Fluoroscopy as above. Fluoroscopy time is 45.8 seconds. Fluoroscopy dose is 461.9 mRad. .
[2017-11-08] MEDS ORDERED: METOCLOPRAMIDE 10mg/2ml INJECTION IVP PRN (17:21)
[2017-11-08] MEDS ORDERED: ONDANSETRON 4 MG/2 ML INJECTION IVP PRN (17:21)
[2017-11-08] MEDS ORDERED: FentaNYL 100 MCG/2 ML INJECTION IVP PRN (17:21)
--- NOTE | 2017-11-08 17:21 | Anesthesia Postoperative Note ---
- Date and Time Date: 11/08/17 Time: 17:20 - Status Patient Participated in Evaluation: Patient Participated in Person Vital Signs: Temperature 98.5 F 11/08/17 14:48 Pulse Rate 102 H 11/08/17 14:48 Respiratory Rate 16 11/08/17 14:48 Blood Pressure 137/70 11/08/17 14:48 Pulse Oximetry 93 11/08/17 14:48 Respiratory Function: Airway Patent Cardiovascular Function: Regular Pulse EKG: Sinus Rhythm Mental Status: Alert and Oriented Pain Intensity: 0 Hydration: IV Infusing Complications During Recover: None Apparent - Follow-Up Instructions Instructions: Per Surgeon
[2017-11-08] MEDS ORDERED: HYDROMORPHONE 2 MG/ML INJECTION IVP PRN (17:22)
[2017-11-08] MEDS ORDERED: MORPHINE SULFATE 10 MG/ML VIAL IVP PRN (17:22)
[2017-11-08] MEDS ORDERED: MEPERIDINE 100 MG/ML INJECTION IVP ONE (17:50)
[2017-11-08] MEDS: NS 1,000 ML IV SCH (19:15)
[2017-11-08] MEDS: HYDROCODONE/APAP 10 MG/325 MG TABLET PO SCH ×2 (19:22→23:06)
[2017-11-08] MEDS: AMITRIPTYLINE 50 MG TABLET PO SCH (21:19)
[2017-11-08] MEDS: MONTELUKAST 10 MG TABLET PO SCH (21:20)
[2017-11-08] MEDS: CEFAZOLIN 2 G in NS 50 ML IV SCH (23:07)
[2017-11-09] MEDS: HYDROCODONE/APAP 10 MG/325 MG TABLET PO PRN (04:25)
[2017-11-09] MEDS: GUAIFENESIN LA 600 MG TABLET PO SCH ×3 (04:27→18:20)
[2017-11-09] MEDS: LEVOTHYROXINE 25 MCG TABLET PO SCH (06:42)
[2017-11-09] MEDS: CEFAZOLIN 2 G in NS 50 ML IV SCH (06:42)
[2017-11-09] MEDS: FUROSEMIDE 80 MG TABLET PO SCH ×2 (06:42→14:34)
--- NOTE | 2017-11-09 09:13 | Operative Note ---
DATE OF OPERATION 11/08/2017 PREOPERATIVE DIAGNOSIS Right patellar periprosthetic fracture. POSTOPERATIVE DIAGNOSIS Right patellar periprosthetic fracture. PROCEDURE Open reduction internal fixation of right patellar periprosthetic fracture with tension biotechnique. SURGEON Gerry Cedeno MD OVERHEAD CLEANER MAINTAINER Akin Maki PA-C COMPLICATIONS None ANESTHESIA Spinal with TIVA EBL, FLUIDS AND TOURNIQUET TIME Please see anesthetic records. DESCRIPTION OF PROCEDURE Mrs. Anaya and her right leg were identified and marked in the preoperative holding area. She was brought back to the operating suite. Spinal anesthetic was administered. She was then placed supine on the operating table and the right lower extremity was prepped and draped in my normal sterile fashion. Time- out was performed. I utilized her previous anterior midline incision. Sharp dissection was carried through this incision. Her skin was extremely thin and very friable. Dissection was carried down through the subcutaneous tissue and there was a large fracture hematoma which was evacuated. Fracture site was easily identified, then cleaned of fracture hematoma. She had a tear in the lateral retinaculum but the medial retinaculum was intact. The patellar button was also visualized and was tested and felt to be secure to the distal fragment. The fracture site was a straight transverse and easily reduced and held in reduced with [id number] reduction clamp. This was confirmed on x- ray. I then placed two K-wires from superior to inferior, again checking these on fluoroscopic imaging. A 19-gauge [place] wire was then passed in a figure-of- eight style around the wires and over the top and then twisted over the top to provide tension. This was again checked on fluoroscopic images. I ranged the knee to 90 degrees and there was no sign of gapping at the fracture site. The pins were bent proximally and turned and then cut short distally. The lateral retinacular tear was repaired with #1 Vicryl. The wound was thoroughly irrigated both before fixation as well as after fixation. Subcutaneous tissue was closed with 2-0 Vicryl in a simple interrupted fashion. Again her skin was extremely fragile and thin and it was closed carefully with interrupted 3-0 nylon in a simple fashion. Again because of her skin, I did not use an adhesive and rather used Xeroform, 4x4s, Kerlix and an Gordon wrap. The tourniquet was then let down, the drapes removed. We placed her back into a knee immobilizer and she was taken to the recovery room under the care of Anesthesia. She tolerated the procedure well. There were no complications. JACINDA
[2017-11-09] MEDS: ASCORBIC ACID 500 MG TABLET PO SCH (09:26)
[2017-11-09] MEDS: PredniSONE 2.5 MG TABLET PO SCH (09:26)
[2017-11-09] MEDS: ALLOPURINOL 100 MG TABLET PO SCH (09:26)
[2017-11-09] MEDS: HYDROCODONE/APAP 10 MG/325 MG TABLET PO SCH ×4 (09:26→20:33)
[2017-11-09] MEDS: CALCIUM POLYCARBOPHIL 625 MG TABLET PO SCH (09:26)
[2017-11-09] MEDS: FERROUS SULFATE 324 MG TABLET PO SCH (09:27)
[2017-11-09] MEDS: CETIRIZINE 10 MG TABLET PO SCH (09:27)
[2017-11-09] MEDS: BENAZEPRIL 10 MG TABLET PO SCH (09:27)
[2017-11-09] MEDS: ENOXAPARIN 40 MG/0.4 ML INJECTION SQ SCH (09:28)
[2017-11-09] MEDS: GABAPENTIN 100 MG CAPSULE PO SCH ×3 (09:28→20:34)
[2017-11-09] MEDS: PREGABALIN 50 MG CAPSULE PO SCH ×3 (09:28→20:33)
[2017-11-09] MEDS: MULTI-VITAMIN + MINERAL TABLET PO SCH (09:29)
[2017-11-09] MEDS: GLUCOSAMINE/CHONDROITIN 500 MG/400 MG CAPSULE PO SCH ×2 (09:29→20:33)
[2017-11-09] MEDS: FOLIC ACID 1 MG TABLET PO SCH (09:29)
[2017-11-09] MEDS: RABEPRAZOLE 20 MG PO SCH (09:29)
[2017-11-09] MEDS: FLUTICASONE NASAL SPRAY 50mcg EA NOSTRIL SCH (09:29)
[2017-11-09] MEDS: CYANOCOBALAMIN (B-12) 500mcg TABLET PO SCH (09:29)
[2017-11-09] MEDS: LUTEIN 20 MG CAPSULE PO SCH (09:29)
[2017-11-09] MEDS: POLYETHYL GLYCOL 3350 17gm PACKET PO SCH (09:30)
[2017-11-09] MEDS: SALINE 0.65% NASAL SPRAY 44 ML BOTTLE EA NOSTRIL SCH (09:31)
[2017-11-09] MEDS: ALBUTEROL/IPRATROPIUM 2.5mg-0.5mg/3ml NEB AEROSOL SCH (09:59)
--- NOTE | 2017-11-09 10:28 | Progress Note ---
- Date 11/09/17 Subjective: Patient seen sitting in her chair prior to breakfast. She reports she walked to the bathroom this morning. She states her knee pain is 9/10. Her fibromyalgia pain is 5-6/10. She states 4/10 is good for her. She's not had any nausea or vomiting. She is currently on regularly scheduled [place] 10/325 2 pills 4 times a day with CT and [place] 10/325 available when necessary. She was on [place] 10/ 325 -1 to 2 tabs every 4 hours hours PRN pain prior to hospitalization for her fibromyalgia. She has been drinking coffee and states her appetite is good. Objective Vital signs: Temperature 98.3 F 11/09/17 08:49 Pulse Rate 98 11/09/17 08:00 Respiratory Rate 12 11/09/17 09:59 Blood Pressure 138/62 11/09/17 07:56 Pulse Oximetry 90 11/09/17 09:59 Height/Weight/BMI: Weight 86 kg - Constitutional Present: no acute distress, well nourished, well developed - Routine HEENT Exam Head: Present: normocephalic, atraumatic - Routine Respiratory Exam Present: CTA bilaterally. Absent: wheezes - Routine Cardiovascular Exam Present: RRR, no murmur - Routine Abdominal Exam Present: soft, non distended, non tender - Routine Extremities Exam Present: no edema (given her obesity, it's difficult to determine whether or not she has much swelling in the operative leg. She has no apparent swelling in the left lower leg and the right calf is soft, no pitting.), normal capillary refill - Routine Skin Exam Present: dry, warm - Routine Neurological Exam Present: alert, oriented X3 - Routine Lymphatic Exam Lymphatic: Absent: adenopathy - Routine Psychiatric Exam Present: normal affect, cooperative Results - Labs CBC & Chem 7: 11/09/17 04:17 11/09/17 04:17 Assessment and Plan (1) Right patella fracture Current visit: Yes Status: Acute Assessment and Plan: IMPRESSION Right patellar fracture -s/p ORIF of right patellar periprosthetic fracture by Dr. Cedeno on 11/08/17 Hypokalemia, not POA Normocytic anemia Asthma, bronchiectasis HTN Polymyalgia rheumatica Hypothyroidism GERD Fibromyalgia Chronic pain PLAN - POD #1 Hemoglobin stable postop 11.2--> 11.2. Continue to monitor. Dr. Mohamud, patient's pain mgt doctor, has been notified of her recent surgery with change in pain medication schedule. He would like to be notified of what we are sending her out on when she is discharged. Currently receiving [place] 10 - 2 pills QID and MS Contin 30 mg daily scheduled. She received 2 mg morphine IV last evening and states it did not help. She also has [place] 10 -2 pills scheduled every 4 hours when necessary and has requested this once since surgery in addition to her routine pain medications. Vitamin D still pending. IV fluids were discontinued. Vitals are stable. Hypokalemia resolved. 11/09/2017-8:55 PM-I reviewed this chart, the patient history, and the FINANCIAL HEALTH COUNSELOR's/PA 's documented findings as above. We discussed and formulated the assessment and plan as above with the additions below.-Sanjay The patient was seen this evening in her room. She was awoken from sleep but awakened easily. She states her pain in her knee is about a 6 on a scale of 1- 10. She states this is tolerable. She is breathing well. She denies any chest pains or abdominal pain. She is having normal bowel movements. She is urinating well. Exam: she is alert and in no acute distress. Chest is clear to auscultation. Cardiovascular reveals a regular rate and rhythm. Abdomen is soft and nontender. Extremities are free of edema. Impression and plan Postop ORIF of right patellar fracture-doing well Mild acute blood loss anemia Asthma history-symptomatic Chronic pain-doing fairly well on current medications Hypertension-fair control Plan is for transfer to [facility] on Monday for intermediate if stable. - Physician Narrative Narrative: Date: 11/09/17 Time: 1025 Hospital Course Summary Disclaimer: The visit summary below is not to be considered part of the above Progress Note. Hospital Course: 11/07 Admit, obs status, under the hospitalist service. Dr. Cedeno consulted. Labs stable; EKG pending - if stable she will be cleared medically for sx. Anticipate pain control will be difficult - may need to discuss with pain mgt provider at [facility] [place] (pt can't recall name). Continue routine meds; monitor resp status with hx of bronchiectasis. PT/OT postop; bowel regimen ordered. Code status: Full code. 2 sons are DPOA. 11/08 OP DAY Will change to inpatient admission status due to need for surgery. Mild hypokalemia - extra KDur ordered. Sx today after 3 pm. Monitor resp status w/ hx of bronchiectasis/asthma. I called Dr. Mohamud's office (her pain mgt MD) - he is ok with increasing pain needs acutely and for a short period postop. He requests to know what we send her out on at time of discharge. Postoperatively changed QID [place] to routine at pt request to help stay on top of pain. Mild normocytic anemia - monitor. Vit D pending. 11/09 POD #1 Hemoglobin stable postop 11.2--> 11.2. Continue to monitor. Dr. Mohamud, patient's pain mgt doctor, has been notified of her recent surgery with change in pain medication schedule. He would like to be notified of what we are sending her out on when she is discharged. Currently receiving [place] 10 - 2 pills QID and MS Contin 30 mg daily scheduled. She received 2 mg morphine IV last evening and states it did not help. She also has [place] 10 -2 pills scheduled every 4 hours when necessary and has requested this once since surgery in addition to her routine pain medications. Vitamin D still pending. IV fluids were discontinued. Vitals are stable. Hypokalemia resolved.
[2017-11-09] MEDS: MONTELUKAST 10 MG TABLET PO SCH (20:33)
[2017-11-09] MEDS: AMITRIPTYLINE 50 MG TABLET PO SCH (20:33)
[2017-11-09] MEDS: Ramelteon [Rozerem] 8 MG PO SCH (20:34)
[2017-11-09] MEDS: NS 1,000 ML IV SCH (21:17)
[2017-11-10] MEDS: AZITHROMYCIN 250 MG TABLET PO SCH (05:52)
[2017-11-10] MEDS: LEVOTHYROXINE 25 MCG TABLET PO SCH (05:52)
[2017-11-10] MEDS: GUAIFENESIN LA 600 MG TABLET PO SCH ×2 (05:52→17:12)
[2017-11-10] MEDS: HYDROCODONE/APAP 10 MG/325 MG TABLET PO PRN (06:02)
[2017-11-10] MEDS: ASCORBIC ACID 500 MG TABLET PO SCH (08:47)
[2017-11-10] MEDS: CETIRIZINE 10 MG TABLET PO SCH (08:47)
[2017-11-10] MEDS: ALLOPURINOL 100 MG TABLET PO SCH (08:47)
[2017-11-10] MEDS: FERROUS SULFATE 324 MG TABLET PO SCH (08:47)
[2017-11-10] MEDS: CYANOCOBALAMIN (B-12) 500mcg TABLET PO SCH (08:47)
[2017-11-10] MEDS: GABAPENTIN 100 MG CAPSULE PO SCH ×3 (08:48→20:05)
[2017-11-10] MEDS: MULTI-VITAMIN + MINERAL TABLET PO SCH (08:48)
[2017-11-10] MEDS: BENAZEPRIL 10 MG TABLET PO SCH (08:48)
[2017-11-10] MEDS: PredniSONE 2.5 MG TABLET PO SCH (08:48)
[2017-11-10] MEDS: FOLIC ACID 1 MG TABLET PO SCH (08:48)
[2017-11-10] MEDS: FUROSEMIDE 80 MG TABLET PO SCH ×2 (08:48→13:19)
[2017-11-10] MEDS: HYDROCODONE/APAP 10 MG/325 MG TABLET PO SCH ×4 (08:49→20:04)
[2017-11-10] MEDS: RABEPRAZOLE 20 MG PO SCH (08:50)
[2017-11-10] MEDS: LUTEIN 20 MG CAPSULE PO SCH (08:50)
[2017-11-10] MEDS: CALCIUM POLYCARBOPHIL 625 MG TABLET PO SCH (08:50)
[2017-11-10] MEDS: GLUCOSAMINE/CHONDROITIN 500 MG/400 MG CAPSULE PO SCH ×2 (08:50→20:05)
[2017-11-10] MEDS: PREGABALIN 50 MG CAPSULE PO SCH ×3 (08:51→20:03)
[2017-11-10] MEDS: ENOXAPARIN 40 MG/0.4 ML INJECTION SQ SCH (08:51)
[2017-11-10] MEDS: POLYETHYL GLYCOL 3350 17gm PACKET PO SCH (08:51)
[2017-11-10] MEDS: FLUTICASONE NASAL SPRAY 50mcg EA NOSTRIL SCH (08:52)
[2017-11-10] MEDS: SALINE 0.65% NASAL SPRAY 44 ML BOTTLE EA NOSTRIL SCH (08:53)
--- NOTE | 2017-11-10 11:44 | Progress Note ---
- Date 11/10/17 Subjective: Patient seen lying in bed this morning. She reports she had a much better night. Her pain is better. She rates it 6/10. She has been getting up and down to go to the bathroom assistance. She admits that she is very nervous when she is up and walking. Her appetite is good. She's had no nausea or vomiting. She is planning on going to senior care unit tomorrow. Objective Vital signs: Temperature 98.2 F 11/10/17 11:36 Pulse Rate 92 11/10/17 11:36 Respiratory Rate 16 11/10/17 11:36 Blood Pressure 117/56 11/10/17 11:36 Pulse Oximetry 90 11/10/17 11:36 Height/Weight/BMI: Weight 84.4 kg - Constitutional Present: no acute distress, well nourished, well developed - Routine HEENT Exam Head: Present: normocephalic, atraumatic - Routine Respiratory Exam Present: CTA bilaterally. Absent: wheezes - Routine Cardiovascular Exam Present: RRR, no murmur - Routine Abdominal Exam Present: soft, non distended, non tender - Routine Extremities Exam Present: no edema, normal capillary refill Comments: Leg brace to right leg. - Routine Skin Exam Present: dry, warm - Routine Neurological Exam Present: alert, oriented X3 - Routine Lymphatic Exam Lymphatic: Absent: adenopathy - Routine Psychiatric Exam Present: normal affect, cooperative Results - Labs CBC & Chem 7: 11/10/17 04:40 11/10/17 04:40 Assessment and Plan (1) Right patella fracture Current visit: Yes Status: Acute Assessment and Plan: IMPRESSION Right patellar fracture -s/p ORIF of right patellar periprosthetic fracture by Dr. Cedeno on 11/08/17 Hypokalemia, not POA Normocytic anemia-POA Mild acute blood loss anemia Asthma, bronchiectasis HTN Polymyalgia rheumatica Hypothyroidism GERD Fibromyalgia Chronic pain PLAN - POD #2 Hemoglobin postop 11.2--> 11.2-->10.5. Continue to monitor. Potassium slightly low at 3.5, replaced. Plan is for transfer to [facility] on Monday for senior care if stable. Dr. Mohamud, patient's pain mgt doctor, has been notified of her recent surgery with change in pain medication schedule. He would like to be notified of what we are sending her out on when she is discharged. Currently receiving [place] 10 - 2 pills QID and MS Contin 30 mg daily scheduled. She also has [place] 10 -2 pills scheduled every 4 hours when necessary. 11/10/2017-7:20 PM-I reviewed this chart, the patient history, and the CHECKING DEPARTMENT SUPERVISOR's/PA 's documented findings as above. We discussed and formulated the assessment and plan as above with the additions below.-Dr. Grace The patient states she's had a very good day. Pain control is much better. She is eating and drinking well. She was on oxygen for a short period this afternoon but does not feel short of breath. She is currently on room air. She will have one bowel movement this hospital stay and thinks that is normal for her. She is urinating without difficulties. On exam, she is alert and in no acute distress. Chest is clear to auscultation. Cardiovascular reveals a regular rate and rhythm. Abdomen is soft and nontender. Left leg is without edema. Right leg is in a straight leg brace and she has edema of the foot and lower leg. She states it is improving. Impression and plan Right patellar fracture-that is post ORIF. Pain has improved markedly. Plan is for transfer to senior care tomorrow around 11 AM if stable. Asthma is stable. Anemia is mild and asymptomatic. - Physician Narrative Narrative: Date: 11/10/17 Time: 1140 Hospital Course Summary Disclaimer: The visit summary below is not to be considered part of the above Progress Note. Hospital Course: 11/07 -admission Admit, obs status, under the hospitalist service. Dr. Cedeno consulted. Labs stable; EKG pending - if stable she will be cleared medically for sx. Anticipate pain control will be difficult - may need to discuss with pain mgt provider at [facility] [place] (pt can't recall name). Continue routine meds; monitor resp status with hx of bronchiectasis. PT/OT postop; bowel regimen ordered. Code status: Full code. 2 sons are DPOA. 11/08 OP DAY Will change to inpatient admission status due to need for surgery. Mild hypokalemia - extra KDur ordered. Sx today after 3 pm. Monitor resp status w/ hx of bronchiectasis/asthma. I called Dr. Mohamud's office (her pain mgt MD) - he is ok with increasing pain needs acutely and for a short period postop. He requests to know what we send her out on at time of discharge. Postoperatively changed QID [place] to routine at pt request to help stay on top of pain. Mild normocytic anemia - monitor. Vit D pending. 3/1 POD #1 Hemoglobin stable postop 11.2--> 11.2. Continue to monitor. Dr. Mohamud, patient's pain mgt doctor, has been notified of her recent surgery with change in pain medication schedule. He would like to be notified of what we are sending her out on when she is discharged. Currently receiving [place] 10 - 2 pills QID and MS Contin 30 mg daily scheduled. She received 2 mg morphine IV last evening and states it did not help. She also has [place] 10 -2 pills scheduled every 4 hours when necessary and has requested this once since surgery in addition to her routine pain medications. Vitamin D still pending. IV fluids were discontinued. Vitals are stable. Hypokalemia resolved. 3/2 POD #2 Hemoglobin postop 11.2--> 11.2-->10.5. Continue to monitor. Potassium slightly low at 3.5, replaced. Plan is for transfer to [facility] on Monday for senior care if stable. Dr. Mohamud, patient's pain mgt doctor, has been notified of her recent surgery with change in pain medication schedule. He would like to be notified of what we are sending her out on when she is discharged. Currently receiving [place] 10 - 2 pills QID and MS Contin 30 mg daily scheduled. She also has [place] 10 -2 pills scheduled every 4 hours when necessary.
[2017-11-10] MEDS: ALBUTEROL/IPRATROPIUM 2.5mg-0.5mg/3ml NEB AEROSOL SCH ×3 (12:58→21:09)
--- NOTE | 2017-11-10 13:51 | Orthopedic Progress Note ---
Date: Date: 11/10/17 Time: 1346 Subjective/Severity of Illness: Maricruz is doing well. She is trying not to SLR or contract her quad. Pain is moderate but well controlled. Dressing is changed during our visit. Plan is for her to go to the [place] on Monday. Orthopedic Objective PO Vital signs: Temperature 98.2 F 11/10/17 11:36 Pulse Rate 92 11/10/17 11:36 Respiratory Rate 16 11/10/17 11:36 Blood Pressure 117/56 11/10/17 11:36 Pulse Oximetry 90 11/10/17 11:36 Height and Weight: Weight 186 lb 1.122 oz - Constitutional General Appearance: Present: alert, cooperative, no acute distress - Respiratory Exam Present: non-labored - Extremities Exam Extremities: Present: pulses intact - Surgical Site Incision: dressing intact, bloody drainage present Wound Drainage: minimal amount - Integumentary Exam Present: bruising - Neurological Exam Present: intact to light touch, no deficits - Psychiatric Exam Present: alert, oriented, normal affect - Wound Management Right Knee Wound Type: Surgical Incision - Labs Result Diagrams: 11/10/17 04:40 11/10/17 04:40 Abnormal lab results 11/10/17 11/10/17 Range/Units 04:40 04:40 RBC 3.43 L (4.00-5.20) M/MM3 Hgb 10.5 L (12-16) GM/DL Hct 33.0 L (36-46) % RDW Std Deviation 51.2 H (36.9-50.2) FL Immature Gran % (Auto) 1.7 H (0.0-0.5) % Lymph % (Auto) 20.2 L (23-45) % [place] % (Auto) 9.5 H (0-9.0) % Eos % (Auto) 5.1 H (0-4) % Abs Immat Gran (auto) 0.15 H (0.00-0.03) T/MM3 Potassium 3.5 L (3.6-5) MEQ/L Carbon Dioxide 32 H (22-30) MEQ/L H & H 11/09/17 11/10/17 Range/Units 04:17 04:40 Hgb 11.2 L 10.5 L (12-16) GM/DL Hct 35.3 L 33.0 L (36-46) % Orthopedic Assessment and Plan (1) Right patella fracture Status: Acute Qualifiers: Encounter type: initial encounter Fracture type: closed Fracture morphology: transverse Fracture alignment: displaced Qualified Code(s): S82.031A - Displaced transverse fracture of right patella, initial encounter for closed fracture Assessment and Plan: May work with PT / OT but must remain in the brace with no quad activation. No SLR's. Must have help getting the leg in and out of bed. WBAT in the brace if the knee is fully extended. Change dressing PRN. Watch skin closely. F/U in ortho clinic 11/20 as scheduled. Expect discharge 11/11/17. Hospital Course Summary Disclaimer: The visit summary below is not to be considered part of the above Progress Note. Hospital Course: 11/07 -admission Admit, obs status, under the hospitalist service. Dr. Cedeno consulted. Labs stable; EKG pending - if stable she will be cleared medically for sx. Anticipate pain control will be difficult - may need to discuss with pain mgt provider at [facility] [place] (pt can't recall name). Continue routine meds; monitor resp status with hx of bronchiectasis. PT/OT postop; bowel regimen ordered. Code status: Full code. 2 sons are DPOA. 11/08 OP DAY Will change to inpatient admission status due to need for surgery. Mild hypokalemia - extra KDur ordered. Sx today after 3 pm. Monitor resp status w/ hx of bronchiectasis/asthma. I called Dr. Mohamud's office (her pain mgt MD) - he is ok with increasing pain needs acutely and for a short period postop. He requests to know what we send her out on at time of discharge. Postoperatively changed QID [place] to routine at pt request to help stay on top of pain. Mild normocytic anemia - monitor. Vit D pending. 3 POD #1 Hemoglobin stable postop 11.2--> 11.2. Continue to monitor. Dr. Mohamud, patient's pain mgt doctor, has been notified of her recent surgery with change in pain medication schedule. He would like to be notified of what we are sending her out on when she is discharged. Currently receiving [place] 10 - 2 pills QID and MS Contin 30 mg daily scheduled. She received 2 mg morphine IV last evening and states it did not help. She also has [place] 10 -2 pills scheduled every 4 hours when necessary and has requested this once since surgery in addition to her routine pain medications. Vitamin D still pending. IV fluids were discontinued. Vitals are stable. Hypokalemia resolved. 3/2 POD #2 Hemoglobin postop 11.2--> 11.2-->10.5. Continue to monitor. Potassium slightly low at 3.5, replaced. Plan is for transfer to [facility] on Monday for alf if stable. Dr. Mohamud, patient's pain mgt doctor, has been notified of her recent surgery with change in pain medication schedule. He would like to be notified of what we are sending her out on when she is discharged. Currently receiving [place] 10 - 2 pills QID and MS Contin 30 mg daily scheduled. She also has [place] 10 -2 pills scheduled every 4 hours when necessary.
[2017-11-10] MEDS: MONTELUKAST 10 MG TABLET PO SCH (20:03)
[2017-11-10] MEDS: AMITRIPTYLINE 50 MG TABLET PO SCH (20:04)
[2017-11-10] MEDS ORDERED: FALL RISK - PHARMACY CONSULT XX ONE (20:17)
[2017-11-10] MEDS: Ramelteon [Rozerem] 8 MG PO SCH (20:22)
[2017-11-11] MEDS: LEVOTHYROXINE 25 MCG TABLET PO SCH (06:12)
[2017-11-11] MEDS: GUAIFENESIN LA 600 MG TABLET PO SCH (06:12)
[2017-11-11 08:17] VITALS: BP 123/57; PULSE 110; TEMP 97.6
[2017-11-11] MEDS: ALBUTEROL/IPRATROPIUM 2.5mg-0.5mg/3ml NEB AEROSOL SCH (08:30)
[2017-11-11 08:42] VITALS: O2SAT 94
--- NOTE | 2017-11-11 09:10 | Orthopedic Progress Note ---
Date: Date: 11/11/17 Time: 907 Subjective/Severity of Illness: A little painful this AM after getting up to the BR. No CP, cough or SOA. She is going to the MD today. Afebrile. VSS. Minimal drainage on bandages today. Orthopedic Objective PO Vital signs: Temperature 97.6 F 11/11/17 08:16 Pulse Rate 110 H 11/11/17 08:16 Respiratory Rate 14 11/11/17 08:30 Blood Pressure 123/57 11/11/17 08:16 Pulse Oximetry 94 11/11/17 08:30 Height and Weight: Weight 186 lb 1.122 oz - Constitutional General Appearance: Present: alert, cooperative, no acute distress - Respiratory Exam Present: non-labored - Extremities Exam Extremities: Present: pulses intact - Surgical Site Incision: dressing intact, bloody drainage present Wound Drainage: minimal amount - Integumentary Exam Present: bruising - Neurological Exam Present: intact to light touch, no deficits - Psychiatric Exam Present: alert, oriented, normal affect - Wound Management Right Knee Wound Type: Surgical Incision - Labs Result Diagrams: 11/11/17 04:28 11/11/17 04:28 Abnormal lab results 11/11/17 11/11/17 Range/Units 04:28 04:28 RBC 3.03 L (4.00-5.20) M/MM3 Hgb 9.4 L (12-16) GM/DL Hct 29.2 L D (36-46) % RDW Std Deviation 50.4 H (36.9-50.2) FL Immature Gran % (Auto) 1.9 H (0.0-0.5) % Lymph % (Auto) 19.4 L (23-45) % [place] % (Auto) 10.4 H (0-9.0) % Eos % (Auto) 5.3 H (0-4) % [place] # (Auto) 0.9 H (0-0.8) T/MM3 Abs Immat Gran (auto) 0.16 H (0.00-0.03) T/MM3 Carbon Dioxide 31 H (22-30) MEQ/L BUN 20.0 H D (7-17) MG/DL Glucose 114 H (65-110) MG/DL H & H 11/09/17 11/10/17 11/11/17 Range/Units 04:17 04:40 04:28 Hgb 11.2 L 10.5 L 9.4 L (12-16) GM/DL Hct 35.3 L 33.0 L 29.2 L D (36-46) % Orthopedic Assessment and Plan (1) Right patella fracture Status: Acute Qualifiers: Encounter type: initial encounter Fracture type: closed Fracture morphology: transverse Fracture alignment: displaced Qualified Code(s): S82.031A - Displaced transverse fracture of right patella, initial encounter for closed fracture Assessment and Plan: May work with PT / OT but must remain in the brace with no quad activation. No SLR's. Must have help getting the leg in and out of bed. WBAT in the brace if the knee is fully extended. Change dressing PRN. Watch skin closely. F/U in ortho clinic 11/20 as scheduled. Expect discharge 11/11/17. Hospital Course Summary Disclaimer: The visit summary below is not to be considered part of the above Progress Note. Hospital Course: 11/07 -admission Admit, obs status, under the hospitalist service. Dr. Cedeno consulted. Labs stable; EKG pending - if stable she will be cleared medically for sx. Anticipate pain control will be difficult - may need to discuss with pain mgt provider at [facility] [place] (pt can't recall name). Continue routine meds; monitor resp status with hx of bronchiectasis. PT/OT postop; bowel regimen ordered. Code status: Full code. 2 sons are DPOA. 11/08 OP DAY Will change to inpatient admission status due to need for surgery. Mild hypokalemia - extra KDur ordered. Sx today after 3 pm. Monitor resp status w/ hx of bronchiectasis/asthma. I called Dr. Mohamud's office (her pain mgt MD) - he is ok with increasing pain needs acutely and for a short period postop. He requests to know what we send her out on at time of discharge. Postoperatively changed QID [place] to routine at pt request to help stay on top of pain. Mild normocytic anemia - monitor. Vit D pending. 11/09 POD #1 Hemoglobin stable postop 11.2--> 11.2. Continue to monitor. Dr. Mohamud, patient's pain mgt doctor, has been notified of her recent surgery with change in pain medication schedule. He would like to be notified of what we are sending her out on when she is discharged. Currently receiving [place] 10 - 2 pills QID and MS Contin 30 mg daily scheduled. She received 2 mg morphine IV last evening and states it did not help. She also has [place] 10 -2 pills scheduled every 4 hours when necessary and has requested this once since surgery in addition to her routine pain medications. Vitamin D still pending. IV fluids were discontinued. Vitals are stable. Hypokalemia resolved. 3/2 POD #2 Hemoglobin postop 11.2--> 11.2-->10.5. Continue to monitor. Potassium slightly low at 3.5, replaced. Plan is for transfer to [facility] on Monday for [facility] if stable. Dr. Mohamud, patient's pain mgt doctor, has been notified of her recent surgery with change in pain medication schedule. He would like to be notified of what we are sending her out on when she is discharged. Currently receiving [place] 10 - 2 pills QID and MS Contin 30 mg daily scheduled. She also has [place] 10 -2 pills scheduled every 4 hours when necessary.
[2017-11-11 09:22] VITALS: RESP 16
[2017-11-11] MEDS: HYDROCODONE/APAP 10 MG/325 MG TABLET PO SCH (09:24)
[2017-11-11] MEDS: RABEPRAZOLE 20 MG PO SCH (09:25)
[2017-11-11] MEDS: CALCIUM POLYCARBOPHIL 625 MG TABLET PO SCH (09:25)
[2017-11-11] MEDS: ALLOPURINOL 100 MG TABLET PO SCH (09:25)
[2017-11-11] MEDS: FUROSEMIDE 80 MG TABLET PO SCH (09:26)
[2017-11-11] MEDS: PredniSONE 2.5 MG TABLET PO SCH (09:26)
[2017-11-11] MEDS: ASCORBIC ACID 500 MG TABLET PO SCH (09:26)
[2017-11-11] MEDS: MULTI-VITAMIN + MINERAL TABLET PO SCH (09:27)
[2017-11-11] MEDS: BENAZEPRIL 10 MG TABLET PO SCH (09:27)
[2017-11-11] MEDS: CETIRIZINE 10 MG TABLET PO SCH (09:28)
[2017-11-11] MEDS: CYANOCOBALAMIN (B-12) 500mcg TABLET PO SCH (09:28)
[2017-11-11] MEDS: GABAPENTIN 100 MG CAPSULE PO SCH (09:29)
[2017-11-11] MEDS: GLUCOSAMINE/CHONDROITIN 500 MG/400 MG CAPSULE PO SCH (09:29)
[2017-11-11] MEDS: LUTEIN 20 MG CAPSULE PO SCH (09:29)
[2017-11-11] MEDS: FOLIC ACID 1 MG TABLET PO SCH (09:29)
[2017-11-11] MEDS: PREGABALIN 50 MG CAPSULE PO SCH (09:29)
[2017-11-11] MEDS: FLUTICASONE NASAL SPRAY 50mcg EA NOSTRIL SCH (09:30)
[2017-11-11] MEDS: POLYETHYL GLYCOL 3350 17gm PACKET PO SCH (09:30)
[2017-11-11] MEDS: ENOXAPARIN 40 MG/0.4 ML INJECTION SQ SCH (09:31)
[2017-11-11] MEDS: FERROUS SULFATE 324 MG TABLET PO SCH (09:32)
[2017-11-11] MEDS: SALINE 0.65% NASAL SPRAY 44 ML BOTTLE EA NOSTRIL SCH (09:32)
--- NOTE | 2017-11-11 10:01 | Discharge Summary ---
Discharge Information Date of admission: 11/08/17 14:55 Anticipated date of discharge: 11/11/17 Attending Physician: Jessi Grace MD Primary care physician: Obi Bull MD Consults: 11/09/17 15:04 Physician Consult [CONS] Routine Consulting Provider: Mackenzie Okeefe Reason For Exam: CONT CARE Ordering Provider has Notified Architectural Administrative Assistant: Yes - Discharge Diagnosis (1) Right patella fracture Status: Acute Right patellar fracture -s/p ORIF of right patellar periprosthetic fracture by Dr. Cedeno on 11/08/17 Hypokalemia, not POA Normocytic anemia-POA Mild acute blood loss anemia Asthma, bronchiectasis HTN Polymyalgia rheumatica Hypothyroidism GERD Fibromyalgia Chronic pain - Procedures Procedures: 11/08/17 PROCEDURE Open reduction internal fixation of right patellar periprosthetic fracture with tension biotechnique. - Laboratory Labs: 11/11/17 04:28 11/11/17 04:28 - Pathology Right knee Impression: Distracted patellar fracture. . CXR negative History of Present Illness HPI: Maricruz Anaya is an 82 y/o woman who fell 2 days earlier while doing laundry. At that time, she landed on her bottom, and she didn't have any pain. However, she developed sharp right knee pain last night when she moved in bed. This pain resolved, and by this morning she was able to ambulate at her baseline - with a walker. After lunch, she was maneuvering her legs to transfer herself from the chair to her scooter and felt a pain and pop in her knee. She denies falling but was unable to ambulate. She otherwise has been in relatively good health and denies any recent or abnormal illness/concerns. 911 was activated and she was transported to [facility], where she was diagnosed with a patellar fracture. Overall, CBC and CMP were unremarkable. Dr. Cedeno and Dr. Bolden were both notified and the patient was admitted to observation status. Surgery is anticipated for 11/08. Objective Vital signs: Temperature 97.6 F 11/11/17 08:16 Pulse Rate 110 H 11/11/17 08:16 Respiratory Rate 16 11/11/17 09:21 Blood Pressure 123/57 11/11/17 08:16 Pulse Oximetry 94 11/11/17 08:30 Rhythm: Sinus Tachycardia Height/Weight/BMI: Weight 84.4 kg - Constitutional Present: no acute distress, obese, cooperative - Routine HEENT Exam Head: Present: normocephalic, atraumatic Eye: Present: EOMI, PERRL ENT: Present: mucous membranes moist - Routine Respiratory Exam Present: decreased breath sounds, CTA bilaterally. Absent: dyspnea, rales, rhonchi, wheezes - Routine Cardiovascular Exam Present: RRR, S1, S2, no murmur, tachycardia - Routine Abdominal Exam Present: soft, normoactive bowel sounds, non distended, non tender - Routine Extremities Exam Present: edema (Right LE edema. Left is at baseline.). Absent: full ROM, Bryon' s sign - Routine Musculoskeletal Exam Musculoskeletal: Present: limited range of motion (Right leg, brace in place. neurovascular exam intact. Left leg with evidence of chronic vascular changes, but no acute findings. ) - Routine Skin Exam Present: intact, dry, warm - Routine Neurological Exam Present: alert, oriented X3, moving all extremities - Routine Psychiatric Exam Present: cooperative, anxious Hospital Course This is a general summary of the patient's hospital course. For more details refer to the complete medical record. Hospital course: 11/07 -admission Admit, obs status, under the hospitalist service. Dr. Cedeno consulted. Labs stable; EKG pending - if stable she will be cleared medically for sx. Anticipate pain control will be difficult - may need to discuss with pain mgt provider at [facility] (pt can't recall name). Continue routine meds; monitor resp status with hx of bronchiectasis. PT/OT postop; bowel regimen ordered. Code status: Full code. 2 sons are DPOA. 11/08 OP DAY Will change to inpatient admission status due to need for surgery. Mild hypokalemia - extra KDur ordered. Sx today after 3 pm. Monitor resp status w/ hx of bronchiectasis/asthma. I called Dr. Mohamud's office (her pain mgt MD) - he is ok with increasing pain needs acutely and for a short period postop. He requests to know what we send her out on at time of discharge. Postoperatively changed QID Lincoln to routine at pt request to help stay on top of pain. Mild normocytic anemia - monitor. Vit D pending. 3/ POD #1 Hemoglobin stable postop 11.2--> 11.2. Continue to monitor. Dr. Mohamud, patient's pain mgt doctor, has been notified of her recent surgery with change in pain medication schedule. He would like to be notified of what we are sending her out on when she is discharged. Currently receiving Lincoln 10 - 2 pills QID and MS Contin 30 mg daily scheduled. She received 2 mg morphine IV last evening and states it did not help. She also has Lincoln 10 -2 pills scheduled every 4 hours when necessary and has requested this once since surgery in addition to her routine pain medications. Vitamin D still pending. IV fluids were discontinued. Vitals are stable. Hypokalemia resolved. 3/2 POD #2 Hemoglobin postop 11.2--> 11.2-->10.5. Continue to monitor. Potassium slightly low at 3.5, replaced. Plan is for transfer to [facility] on Monday for custodial if stable. Dr. Mohamud, patient's pain mgt doctor, has been notified of her recent surgery with change in pain medication schedule. He would like to be notified of what we are sending her out on when she is discharged. Currently receiving Lincoln 10 - 2 pills QID and MS Contin 30 mg daily scheduled. She also has Lincoln 10 -2 pills scheduled every 4 hours when necessary. 11/11/17 POD #3 Plan to dismiss to SNU today for further therapy. She is mildly tachycardic today- suspect some mild fluid overload. She is afebrile, and her BP is normal. Her HGB is mildly decreased, but suspect due to fluid overload as well. She is back on the Lasix 80mg BID. She would benefit from additional diuresis when at , but she is transferring shortly, so don't want to provide IV diuretics immediately prior to discharge. Chronic pain will remain an issue. Plan as detailed above is noted. Continue current home medications as appropriate. Recommend labs on Monday for stability. Continue lovenox for DVT px. Edema in right leg is reportedly improving. Time spent with patient: greater than 35 minutes Resuscitation Status: Full Code Discharge Plan - Discharge Disposition Discharge Date: 11/11/17 Disposition: 03 To SNU Not [facility] [place]) *Condition: Stable Reason For Visit (Visit label in EMR): patella fracture - Discharge Medications *Discharge Medications: New Enoxaparin Sodium [Lovenox] 40 mg SQ Q24H #21 syringe Continue Amitriptyline HCl 150 mg PO HS #0 Pregabalin Cap [Lyrica] 50 mg PO TID #0 Levothyroxine Sodium 25 mcg PO DAILY #0 Cetirizine HCl [Zyrtec] 10 mg PO DAILY #0 Benazepril HCl 10 mg PO DAILY #0 Rabeprazole Sodium 20 mg PO DAILY #0 Peg 3350 238 G Bottle [Miralax] 17 gm PO DAILY PRN PRN Reason: Constipation Magnesium Hydroxide [Milk of Magnesia] 30 ml PO DAILY PRN PRN Reason: Constipation Hydrocortisone/Aloe Vera [Hydrocortisone Plus 1% Cream] 1 applicatio TOP PRN PRN PRN Reason: Prn Orders Mag Hydrox/Aluminum Hyd/Simeth [Alum-Mag Hydroxide-Simeth Liq] 30 ml PO Q4H PRN PRN Reason: Epigastric Distress Ramelteon [Rozerem] 8 mg PO HS Multivitamin [One Daily Multivitamin] 1 tab PO HS Vitamin C 1 tab PO DAILY Triamcinolone Acetonide [Nasacort] 1 spray EA NOSTRIL BIDBS Potassium Chloride 20 meq PO BIDBS Morphine Sulfate [Morphine Sulfate ER] 30 mg PO DAILY Peg 3350 238 G Bottle [Miralax] 17 gm PO DAILY Azithromycin 250 mg PO Q2D PredniSONE [Deltasone 2.5 mg] 2.5 mg PO DAILY guaiFENesin [Mucinex] 600 mg PO Q12H Allopurinol [Zyloprim] 200 mg PO DAILY Ferrous Sulfate 325 mg PO DAILY Glucosa [place] 2Kcl/Chondroitin [place]wood [Glucosamine Chondroitin Caplet] 1 tab PO BID Folic Acid [Folate] 1 mg PO DAILY Cyanocobalamin (Vitamin B-12) [Vitamin B-12] 1,000 mcg PO BID Calcium Polycarbophil [Fiber] 625 mg PO DAILY Albuterol/Ipratropium [Duoneb] 1 unit AEROSOL BID Montelukast Sodium [Singulair] 10 mg PO HS #0 Fluticasone/Salmeterol 250/50 [Advair 250-50 Diskus] 1 puff INH BID #0 Albuterol Sulfate [Proventil Hfa 90mcg] 2 puff IH Q4HR PRN #0 PRN Reason: PRN ORDERS Sodium Chloride [Deep Sea] 2 spray EA NOSTRIL DAILY #0 Lutein 20 mg PO HS #0 Saline 0.65% Nasal [place] [Deep Sea Nasal Moisturizing [place]] 2 spray EA NOSTRIL PRN PRN PRN Reason: Dry Nasal Passages Mangum-3/Dha/Epa/Fish Oil [Fish Oil Dr 500 mg Softgel] 500 mg PO HS DiltiaZEM CD [Cardizem CD 120 MG] 120 mg PO DAILY Furosemide [Lasix] 80 mg PO BID Changed Cholecalciferol (Vitamin D3) [Vitamin D3] 2,000 unit PO DAILY #0 No Action Hydrocodone/APAP 10/325 [Lincoln 10/325] 2 tab PO QID PRN PRN Reason: Pain Gabapentin [Neurontin] 100 mg PO TID Hydrocodone/APAP 10/325 [Lincoln 10/325] 1 - 2 tab PO Q4H PRN PRN Reason: Pain - Discharge Packet/Instructions *Activity: No SLR's, Pt should not lift the leg in and out of bed on her own. She should not contract the quadriceps muscles on the right leg. No quad exercises. Do NOT bend the knee. Use the immobilzer at all times. Always help her with transfers to prevent her from lifting the leg herself. May be WBAT when standing and the brace is in place with the knee completely straight. *Pain Management/Treatment: Dr. Mohamud, patient's pain mgt doctor, has been notified of her recent surgery with change in pain medication schedule. He would like to be notified of what we are sending her out on when she is discharged *Wound Care: Change dressing as needed. Check skin daily. Keep pressure off heel to prevent pressure ulcer. Additional Instructions: 11/13/17- CBC, BMP, Mag. *Notify Physician if: fever over 101, HR over 120, SBP under 90. *During Business Hours Contact: Covering provider *Pending Lab/Results: Follow up w/Provider - Referrals/Follow Up *Referrals/Follow Up: Akin Maki PA [Physician Control Chemist] - 11/20/17 9:00 am Obi Bull MD [Family Provider] - 1 Week (Hospital follow up) - Patient Handouts Patient Handouts: [facility] Postop Instructions - Dismissal Complete Discharge Instructions are:: Incomplete Physician Narrative - Narrative Physician: Jasvir Bolden MD Attestation Narrative: Date: 11/11/17 Time: 1030 I have independently interviewed and examined patient prior to discharge. Chart reviewed. Case discussed with my CASE FOLDER. Care plan developed with my supervision; agree with above. Doing okay. Pain running about 7. Tolerating pain meds. No nausea-oral intake okay. Breathing stable. Lungs: decreased, no distress CV: regular MSE: awake alert appropriate Plan: Will D/C to [facility] for skilled care-medically stable. See orders for details.
--- NOTE | 2017-11-11 10:31 | Extended Care Facility Orders ---
Admission Orders Admit to:: Group Home Allergies/Adverse Reactions: Allergies adhesive tape Allergy (Unknown, Verified 11/07/17 15:40) RASH Cantaloupe Allergy (Verified 11/07/17 15:41) celecoxib [From Celebrex] Allergy (Verified 11/07/17 15:41) duloxetine Allergy (Verified 11/07/17 15:41) petrolatum,white [From Petroleum Jelly] Allergy (Verified 11/07/17 15:41) sulfamethoxazole Allergy (Verified 11/07/17 15:41) trimethoprim Allergy (Verified 11/07/17 15:41) Admitting Diagnosis: patella fracture Admitting Physician: Dr Bolden Attending Physician: Dr Bull Code Status: Full Code Anticiapted Length of Stay: 30 days or less Rehab Potential: good Rehab Prognosis: good Diet: Regular diet Wound/Incision Care: Change dressing as needed. Check skin daily. Keep pressure off heel to prevent pressure ulcer. May use Facility Protocol or Standing Orders: Yes May have flu vaccine: Yes Evaluations/Treatment: PT, OT Group Home Certification: I certify that SNF services are required to be given on an Inpatient basis because of the patients need for fpc care on a continuing basis for the condition(s) for which he/she received inpatient hospital services prior to his/her transfer to the SNF. SNF inpatient care is necessary for the following reasons Indication for Group Home: Wound Care/Assessment, Med Admininistration, Postop Assessment Care, Teach Medication Management, Other (Skilled PT/OT to maximize functional status. ) - Additional Information In Event of Arrest: Start CPR,call 911,send patient to the ER Resident is Aware of Diagnosis: Yes Referrals: Akin Maki PA [Physician Lang Path Therapist] - 11/20/17 9:00 am Obi Bull MD [Family Provider] - 1 Week (Hospital follow up) Additional Orders: Activity: No SLR's, Pt should not lift the leg in and out of bed on her own. She should not contract the quadriceps muscles on the right leg. No quad exercises. Do NOT bend the knee. Use the immobilzer at all times. Always help her with transfers to prevent her from lifting the leg herself. May be WBAT when standing and the brace is in place with the knee completely straight.
== END 2017-11-11 12:00 | DRG 516 ==
LOC: ED 14:25 → SRG 14:25 → SUATTDRO 11-08 14:55
PROVIDERS: ADMIT Hospitalist; ATTEND Internal Medicine